=== PATIENT | female | born 1940 | race Caucasian/White ===

== ENCOUNTER 2018-05-11 13:09 | Outpatient (REF) | payer MEDICARE, SELFPAY ==
[2018-05-11 18:45] LABS: HCT 28.4 % (36.0-46.0); HGB 8.6 g/dL (12.0-15.5); Mean Corp. HGB Concentration 30.3 g/dL (32.0-36.0); Mean Corpuscular Hemoglobin 32.3 pg (27.0-33.0); Mean Corpuscular Volume 106.8 fL (80-95); Mean Platelet Volume 10.6 fL (8.0-11.0); Platelet Count 184 x1000/uL (130-400); RBC 2.66 m/cumm (4.00-5.20); RBC Distribution Width 14.8 % (11.7-14.6); White Blood Cell Count 7.77 k/cumm (4.4-10.8)
[2018-05-11 18:48] LABS: Anion Gap 9.3 mmol/L (3-11); CO2 27.7 mmol/L (21.0-32.0); CREATININE 2.27 mg/dL (0.55-1.02); Calcium 8.7 mg/dL (8.5-10.1); Chloride 102 mmol/L (98-107); Estimated GFR 20.82 (mL/min/1.73m2); Glucose 116 mg/dL (70-100); Potassium 4.4 mmol/L (3.5-5.1); Sodium 139 mmol/L (136-145)
[2018-05-11 19:33] LABS: BUN 101 mg/dL (7-18)
[2018-05-11 19:35] LABS: Hemoglobin A1C 5.3 % (4.5-6.2)
== END 2018-05-11 13:29 ==
LOC: NCHCN 13:09
PROVIDERS: PCP Family Medicine; Visit Provider Family Medicine
DX: N18.4 Chronic kidney disease, stage 4 (severe) (principal); I10 Essential (primary) hypertension; R53.83 Other fatigue; R73.01 Impaired fasting glucose
CPT/HCPCS: 80048; 85027; 83036; 84443

== ENCOUNTER 2018-05-28 15:50 | Emergency (ER) | payer MEDICARE, MEDICAID, SELFPAY ==
[2018-05-28] VITALS (27 sets, daily range): BP systolic 101–131; BP diastolic 36–82; PULSE 69–89; RESP 2–25; TEMP 36.5–37; O2SAT 89–100
--- NOTE | 2018-05-28 16:52 | DI.RAD_ITS ---
SYMPTOM/DIAGNOSIS: COUGH, CONGESTION, SOB, WT GAIN, NAUSEA AP AND LATERAL CHEST: There is some increased interstitial markings in the lungs. No localized infiltrate is seen. The heart is top limits of normal in size. Pacing wires in place in the right atrium and right ventricle. SUMMARY: The possibility of mild congestive failure is raised. If clinically appropriate a follow up PA and lateral chest could be obtained.
--- NOTE | 2018-05-28 17:00 | ED.GENADUL_ITS ---
Discharge Plan Disposition Patient Disposition: AGAINST MEDICAL ADVICE Discharge Details Chief Complaint: GenMedical Clinical Impression: CHF (congestive heart failure), Pneumonia, Elevated INR Primary Care Provider: Lyric Jackson ED Provider: De Gil Home Meds and New Rx's Prescriptions: New doxycycline hyclate 100 mg capsule 100 mg PO Q12H 10 Days Qty: 20 RF: 0 Continued furosemide 40 MG tablet 40 mg PO BID RF: 0 acetaminophen [Tylenol] 325 MG tablet 650 mg PO TID RF: 0 sertraline 100 MG tablet 100 mg PO DAILY RF: 0 melatonin 3 MG tablet 3 mg PO HS RF: 0 amlodipine 5 MG tablet 5 mg PO DAILY RF: 0 calcium carbonate-vitamin D3 1 EACH tablet 1 tab PO BID RF: 0 coenzyme Q10 [Co Q-10] 50 MG capsule 50 mg PO DAILY RF: 0 simvastatin 20 MG tablet 20 mg PO DAILY RF: 0 ferrous sulfate 325 MG tablet 325 mg PO BID RF: 0 valsartan [Diovan] 320 MG tablet 320 mg PO DAILY RF: 0 zafirlukast 20 MG tablet 20 mg PO BID RF: 0 nitroglycerin [Nitrostat] 0.4 MG tablet, sublingual 0.4 mg Sublingual PRN PRNRF: 0 omeprazole 20 MG capsule,delayed release(DR/EC) 20 mg PO BID RF: 0 albuterol sulfate [ProAir HFA] 8.5 GM HFA aerosol inhaler 2 puff Inhalation BID RF: 0 loratadine 10 MG tablet 10 mg PO DAILY RF: 0 rizatriptan 5 MG tablet 5 mg PO PRN PRNRF: 0 metoprolol tartrate 25 MG tablet 25 mg PO BID RF: 0 Symbicort 10.2 GM HFA aerosol inhaler 3 puff Inhalation BID RF: 0 glucosam-chond kr-xxieji-de ac 1 EACH capsule 2 ea PO DAILY RF: 0 Vitamins B Complex 1 EACH tablet 1 ea PO DAILY RF: 0 No Action warfarin [Coumadin] 5 MG tablet 2.5 - 5 mg PO DAILY RF: 0 Discharge Instructions Instructions: Heart Failure (ED), Against Medical Advice (ED), Pneumonia (ED) Additional Instructions: You have been started on a antibiotic for your suspected pneumonia. It was also found that your Coumadin level was very high. Please hold your Coumadin for the next 2 days. Recheck an INR on Wednesday. If between 2 and 3 restart Coumadin at normal dose range is Please follow-up with your primary care doctor tomorrow morning Referrals: Lyric Jackson MD [Primary Care Provider] - 05/29/18 8:00 am Discharge Data Discharge Date/Time-TO BE ENTERED AT DEPARTURE: 05/28/18 20:14 Discharge Physician: De Gil Medical Decision Making Patient is a 78-year-old female arriving with the above chief complaint. EKG shows continual V paced rhythm with a rate of 75 bpm. Chest x-ray concerning for slight fluid overload possible underlying pneumonia. No focal consolidation noted. Labs concerning for slightly elevated BNP and elevated white blood cell count of 15,000. Noted left shift. Blood cultures x2 sent along with lactate. Ceftriaxone 1 g IV ordered Patient requesting discharge home despite questionable pneumonia along with CHF exacerbation. My recommendations were for hospitalization. She understands the risks associated with discharge home and has signed AMA paperwork. Plan is to start her on doxycycline 100 mg twice daily times 10 days. She has local PCP in the area along with pulmonology. Recommended that she follow-up with both tomorrow morning. Strict return precautions provided. HPI General Date/Time Provider Initiated Documentation: 05/28/18 16:13 . HPI Narrative: Patient is a 78-year-old female resenting with a chief complaint of shortness of breath, productive cough, weakness, nausea over the last week. She denies any chest pain hemoptysis or fevers. She does report a significant weight gain over this time. She was recently seen by her PCP a week ago and had her Lasix 80 reduced from 80 mg twice daily to 80 mg in a.m. and 40 mg in p.m. She did have blood work drawn this morning and was seen by her PCP. Related Data Home Medications Medication Instructions Recorded Confirmed Symbicort 3 puff INHALATION BID 09/11/14 05/28/18 Vitamins B Complex 1 ea PO DAILY 09/11/14 05/28/18 acetaminophen [Tylenol] 650 mg PO TID 09/11/14 05/28/18 albuterol sulfate [ProAir HFA] 2 puff INHALATION BID 09/11/14 05/28/18 amlodipine 5 mg PO DAILY 09/11/14 05/28/18 calcium carbonate-vitamin D3 1 tab PO BID 09/11/14 05/28/18 coenzyme Q10 [Co Q-10] 50 mg PO DAILY 09/11/14 05/28/18 ferrous sulfate 325 mg PO BID 09/11/14 05/28/18 furosemide 40 mg PO BID 09/11/14 05/28/18 glucosam-chond kw-avbgkb-le ac 2 ea PO DAILY 09/11/14 05/28/18 loratadine 10 mg PO DAILY 09/11/14 05/28/18 melatonin 3 mg PO HS 09/11/14 05/28/18 metoprolol tartrate 25 mg PO BID 09/11/14 05/28/18 nitroglycerin [Nitrostat] 0.4 mg SUBLINGUAL PRN PRN 09/11/14 05/28/18 omeprazole 20 mg PO BID 09/11/14 05/28/18 rizatriptan 5 mg PO PRN PRN 09/11/14 05/28/18 sertraline 100 mg PO DAILY 09/11/14 05/28/18 simvastatin 20 mg PO DAILY 09/11/14 05/28/18 valsartan [Diovan] 320 mg PO DAILY 09/11/14 05/28/18 warfarin [Coumadin] 2.5 - 5 mg PO DAILY 09/11/14 05/28/18 zafirlukast 20 mg PO BID 09/11/14 05/28/18 doxycycline hyclate 100 mg PO Q12H 10 Days #20 cap 05/28/18 Previous Rx's Medication Instructions Recorded doxycycline hyclate 100 mg PO Q12H 10 Days #20 cap 05/28/18 Allergies Allergy/AdvReac Type Severity Reaction Status Date / Time oxycodone AdvReac Intermediate Nausea Unverified 05/28/18 17:26 oxycodone HCl [From Percocet] AdvReac Intermediate Nausea Unverified 05/28/18 17:26 General Stated Complaint: GenMedical YOAN: 2 PFSH Social History Smoking/Tobacco Use Status: Former Tobacco Use Alcohol Intake: never Drug use: Never Substance use type: does not use Do you feel safe at home: Yes Do you feel safe in your relationship?: Yes Exam Const General: cooperative, comfortable and no acute distress Nutritional Appearance: well nourished Orientation: alert, awake and oriented x3 HENMT Head: normal to inspection Ears: external ears normal and TM's normal bilaterally General nose exam: external nose normal Face and sinus: normal facial exam Mouth: oral mucosae normal Throat: posterior oropharynx normal Eyes General: appearance normal, both eyes and all related structures Sclera: sclerae normal Cornea: corneas normal Neck Neck: normal visual inspection Carotids: normal carotid upstroke Chest Chest: normal inspection of the chest Resp Effort & Inspection: normal respiratory effort Auscultation: bronchial breath sounds and wheezes expiratory wheezes and right upper Cardio Jugular venous pressure: no JVD Palpation: normal PMI Rate: regular rate Rhythm: regular rhythm Pulses: normal peripheral pulses GI Palpation: soft, no hepatosplenomegaly, not firm and no guarding Back/Spine/Pelvis Back: no CVA tenderness Skin General skin exam: no rashes or lesions noted Lesions: no lesions Rashes: no rashes Neuro General: alert, awake and oriented x3 Course Vital Signs Temperature 36.5 C 05/28/18 16:05 Pulse 75 05/28/18 16:05 Respiratory Rate 20 05/28/18 16:05 Blood Pressure 126/82 05/28/18 16:05 Pulse Oximetry 93 L 05/28/18 16:05 Temperature 37 C 05/28/18 16:46 Temperature Source Oral 05/28/18 16:46 Pulse 75 05/28/18 16:05 Respiratory Rate 20 05/28/18 16:05 Blood Pressure 126/82 05/28/18 16:05 Blood Pressure Position Sitting 05/28/18 16:05 Pulse Oximetry 93 L 05/28/18 16:05 Oxygen Delivery Method Room Air 05/28/18 16:05 Oxygen Flow Rate 0 05/28/18 16:05 Pain Level 0 05/28/18 16:05 Lab/Test Results Lab/Test Results: 05/28/18 18:55 Blood Blood Culture - Pending 05/28/18 19:07 Blood Blood Culture - Pending Laboratory Tests Range/Units 05/28/18 05/28/18 05/28/18 17:08 17:08 17:08 WBC (4.4-10.8) k/cumm RBC (4.00-5.20) m/cumm Hgb (12.0-15.5) g/dL Hct (36.0-46.0) % MCV (80-95) fL MCH (27.0-33.0) pg MCHC (32.0-36.0) g/dL RDW (11.7-14.6) % Plt Count (130-400) x1000/uL MPV (8.0-11.0) fL Immature Gran % Neutrophils % Lymphocytes % Monocytes % Eosinophils % Basophils % Absolute Neutrophils (1.2-6.7) k/cumm Absolute Lymphocytes (1.2-3.4) k/cumm Absolute Monocytes (0.11-0.7) k/cumm Absolute Eosinophils (0.0-0.7) k/cumm Absolute Basophils (0.0-0.2) k/cumm RBC Morphology Polychromasia Macrocytosis PT Cancelled INR Cancelled APTT Cancelled Sodium (136-145) mmol/L 140 Potassium (3.5-5.1) mmol/L 4.3 Chloride (98-107) mmol/L 102 Carbon Dioxide (21.0-32.0) mmol/L 29.3 Anion Gap (3-11) mmol/L 8.7 BUN (7-18) mg/dL 76 H Creatinine (0.55-1.02) mg/dL 2.52 H Estimated GFR/1.73 m2 (mL/min/1.73m2) 18.46 Glucose (70-100) mg/dL 114 H Lactate (0.6-1.4) mmol/l Calcium (8.5-10.1) mg/dL 8.9 Magnesium (1.8-2.4) mg/dL 2.0 Total Bilirubin (0.2-1.0) mg/dL 0.5 AST (15-37) U/L 27 ALT (12-78) U/L 24 Alkaline Phosphatase (46-116) U/L 87 Troponin I (0.00-0.06) ng/mL < 0.02 NT-Pro-B Natriuret Pep ( - 299) pg/mL 5468 H Total Protein (6.4-8.2) g/dL 6.8 Albumin (3.4-5.0) g/dL 2.9 L Range/Units 05/28/18 05/28/18 05/28/18 17:25 18:33 19:07 WBC (4.4-10.8) k/cumm 15.71 H RBC (4.00-5.20) m/cumm 2.22 L Hgb (12.0-15.5) g/dL 7.2 L Hct (36.0-46.0) % 24.0 L MCV (80-95) fL 108.1 H MCH (27.0-33.0) pg 32.4 MCHC (32.0-36.0) g/dL 30.0 L RDW (11.7-14.6) % 15.3 H Plt Count (130-400) x1000/uL 168 MPV (8.0-11.0) fL 9.7 Immature Gran % 0.1 Neutrophils % 87.7 Lymphocytes % 5.9 Monocytes % 5.2 Eosinophils % 1.1 Basophils % 0.0 Absolute Neutrophils (1.2-6.7) k/cumm 13.78 H Absolute Lymphocytes (1.2-3.4) k/cumm 0.93 L Absolute Monocytes (0.11-0.7) k/cumm 0.82 H Absolute Eosinophils (0.0-0.7) k/cumm 0.17 Absolute Basophils (0.0-0.2) k/cumm 0.00 RBC Morphology See below Polychromasia Present Macrocytosis 1+ PT 56.1 H INR 5.5 H* APTT 68.8 H Sodium (136-145) mmol/L Potassium (3.5-5.1) mmol/L Chloride (98-107) mmol/L Carbon Dioxide (21.0-32.0) mmol/L Anion Gap (3-11) mmol/L BUN (7-18) mg/dL Creatinine (0.55-1.02) mg/dL Estimated GFR/1.73 m2 (mL/min/1.73m2) Glucose (70-100) mg/dL Lactate (0.6-1.4) mmol/l 0.8 Calcium (8.5-10.1) mg/dL Magnesium (1.8-2.4) mg/dL Total Bilirubin (0.2-1.0) mg/dL AST (15-37) U/L ALT (12-78) U/L Alkaline Phosphatase (46-116) U/L Troponin I (0.00-0.06) ng/mL NT-Pro-B Natriuret Pep ( - 299) pg/mL Total Protein (6.4-8.2) g/dL Albumin (3.4-5.0) g/dL
[2018-05-28] MEDS: Albuterol/Ipratropium 3 ML UPD VIAL UPD (17:14)
[2018-05-28 17:48] LABS: Abs Immature Grans 0.02 k/cumm (0.0-0.09); Absolute Eosinophil Count 0.17 k/cumm (0.0-0.7); Absolute Lymphocyte Count 0.93 k/cumm (1.2-3.4); Absolute Monocyte Count 0.82 k/cumm (0.11-0.7); Eosinophils % 1.1; HGB 7.2 g/dL (12.0-15.5); Immature Grans % 0.1; Lymphocytes % 5.9; Mean Corpuscular Hemoglobin 32.4 pg (27.0-33.0); Mean Corpuscular Volume 108.1 fL (80-95); Mean Platelet Volume 9.7 fL (8.0-11.0); Monocytes % 5.2; Neutrophils % 87.7; Platelet Count 168 x1000/uL (130-400); RBC 2.22 m/cumm (4.00-5.20); RBC Distribution Width 15.3 % (11.7-14.6); White Blood Cell Count 15.71 k/cumm (4.4-10.8)
[2018-05-28 17:54] LABS: ALT 24 U/L (12-78); AST 27 U/L (15-37); Albumin 2.9 g/dL (3.4-5.0); Alkaline Phosphatase 87 U/L (46-116); Anion Gap 8.7 mmol/L (3-11); BUN 76 mg/dL (7-18); Bilirubin, Total 0.5 mg/dL (0.2-1.0); CO2 29.3 mmol/L (21.0-32.0); CREATININE 2.52 mg/dL (0.55-1.02); Calcium 8.9 mg/dL (8.5-10.1); Chloride 102 mmol/L (98-107); Estimated GFR 18.46 (mL/min/1.73m2); Glucose 114 mg/dL (70-100); Potassium 4.3 mmol/L (3.5-5.1); Sodium 140 mmol/L (136-145); Total Protein 6.8 g/dL (6.4-8.2)
--- NOTE | 2018-05-28 17:55 | DI.VRAD_ITS ---
EXAM: XR Chest, 2 Views EXAM DATE/TIME: 05/28/2018 4:56 PM CLINICAL HISTORY: 78 years old, female; Signs and symptoms; Cough TECHNIQUE: Imaging protocol: XR of the chest, 2 views. COMPARISON: CR CHEST 2 VIEWS PA,LAT 06/13/2014 4:04 PM FINDINGS: Tubes, catheters and devices: Stable placement of the dual chamber cardiac conduction device with lead tips in the right atrium and right ventricle. Lungs: Diffuse prominence to interstitial markings with associated bilateral segmental bronchial wall thickening. No large airspace consolidations are grossly noted. Pleural space: Mild thickening to the right minor fissure. Costophrenic angles appear grossly clear. Heart/Mediastinum: Stable cardiomegaly. Vasculature: Stable calcified aortic knob. Bones/joints: There has been interval right shoulder hemiarthroplasty. No acute skeletal abnormalities are otherwise noted. IMPRESSION: Main diagnostic consideration would be that of early diffuse interstitial pulmonary edema, most likely cardiogenic in etiology. Differential would include an atypical infectious pneumonic process in the appropriate clinical setting. Dictated and Authenticated by: Garfield Melendez MD. Ordering:SHANKAR Kc MD
[2018-05-28 17:59] LABS: Troponin I < 0.02 ng/mL (0.00-0.06)
[2018-05-28 18:05] LABS: NT-proBNP 5468 pg/mL
[2018-05-28 18:24] LABS: Absolute Neutrophil Count 13.78 k/cumm (1.2-6.7)
[2018-05-28 18:26] LABS: Macrocytosis 1+; Polychromasia Present
[2018-05-28 18:54] LABS: PTT Activated 68.8 sec (21.0-31.4); Prothrombin Time 56.1 sec (9.3-11.0)
[2018-05-28 19:22] LABS: INR 5.5 (0.9-1.1)
[2018-05-28] MEDS: cefTRIAXone 1 GM/50 ML BAG IVPB (19:25)
[2018-05-28 19:27] LABS: Lactate-non-spesis 0.8 mmol/l (0.6-1.4)
== END 2018-05-28 20:14 | disposition left against medical advice (07) ==
PROVIDERS: Emergency Provider Physician Assistant; PCP Family Medicine
DX: I50.9 Heart failure, unspecified (principal); I13.0 Hypertensive heart and chronic kidney disease with heart failure and stage 1 through stage 4 chronic kidney disease, or unspecified chronic kidney disease; N18.9 Chronic kidney disease, unspecified; J18.9 Pneumonia, unspecified organism; R79.1 Abnormal coagulation profile; T45.515A Adverse effect of anticoagulants, initial encounter; Z79.01 Long term (current) use of anticoagulants; R63.5 Abnormal weight gain
CPT/HCPCS: 36415; 80053; 87040; 93005; 94640; 96365; 99285; 71046; 83605; 83735; 83880; 84484; 85025; 85610; 85730; 93010; J0696; J7620

== ENCOUNTER 2018-05-31 09:16 | Outpatient (RCR) | payer MEDICARE, MEDICAID, SELFPAY ==
[2018-05-31] MEDS: Darbepoetin 40 MCG SYR SC (11:19)
== END 2018-06-12 23:59 | disposition home or self-care (01) ==
LOC: INF 09:16
PROVIDERS: PCP Family Medicine; Visit Provider Internal Medicine
DX: N18.4 Chronic kidney disease, stage 4 (severe) (principal); D63.1 Anemia in chronic kidney disease
CPT/HCPCS: 96372; J0881

== ENCOUNTER 2018-06-06 14:43 | Outpatient (REF) | payer MEDICARE, MEDICAID, SELFPAY ==
[2018-06-07 08:18] LABS: HCT 25.1 % (36.0-46.0); HGB 7.3 g/dL (12.0-15.5); Mean Corp. HGB Concentration 29.1 g/dL (32.0-36.0); Mean Corpuscular Hemoglobin 31.5 pg (27.0-33.0); Mean Platelet Volume 10.6 fL (8.0-11.0); Platelet Count 279 x1000/uL (130-400); RBC 2.32 m/cumm (4.00-5.20); RBC Distribution Width 15.1 % (11.7-14.6); White Blood Cell Count 8.74 k/cumm (4.4-10.8)
[2018-06-07 08:44] LABS: Mean Corpuscular Volume 108.2 fL (80-95)
[2018-06-07 10:20] LABS: Anion Gap 8.1 mmol/L (3-11); BUN 70 mg/dL (7-18); CO2 27.9 mmol/L (21.0-32.0); Calcium 8.8 mg/dL (8.5-10.1); Chloride 101 mmol/L (98-107); Estimated GFR 22.78 (mL/min/1.73m2); Glucose 88 mg/dL (70-100); NT-proBNP 6573 pg/mL; Potassium 5.2 mmol/L (3.5-5.1); Sodium 137 mmol/L (136-145)
== END 2018-06-06 15:03 ==
LOC: NCHCN 14:43
PROVIDERS: PCP Family Medicine; Visit Provider Family Medicine
DX: N18.4 Chronic kidney disease, stage 4 (severe) (principal); D63.1 Anemia in chronic kidney disease; I13.0 Hypertensive heart and chronic kidney disease with heart failure and stage 1 through stage 4 chronic kidney disease, or unspecified chronic kidney disease
CPT/HCPCS: 80048; 85027; 83880

== ENCOUNTER 2018-07-06 00:55 | Outpatient (RCR) | payer MEDICARE, MEDICAID, SELFPAY ==
[2018-07-06] MEDS: Darbepoetin 40 MCG SYR SC (09:26)
== END 2018-07-13 23:59 | disposition home or self-care (01) ==
LOC: INF 00:55
PROVIDERS: PCP Family Medicine; Visit Provider Family Medicine
DX: N18.4 Chronic kidney disease, stage 4 (severe) (principal); D63.1 Anemia in chronic kidney disease
CPT/HCPCS: 96372; J0881

== ENCOUNTER 2018-08-09 08:35 | Outpatient (RCR) | payer MEDICARE, MEDICAID, SELFPAY | END 2018-08-12 23:59 | disposition home or self-care (01) | LOC: INF 08:35 | PROVIDERS: PCP Family Medicine; Visit Provider Internal Medicine | DX: N18.4 Chronic kidney disease, stage 4 (severe) (principal); D63.1 Anemia in chronic kidney disease | CPT/HCPCS: 96372; J0881 ==

== ENCOUNTER 2018-09-11 01:17 | Outpatient (RCR) | payer MEDICARE, MEDICAID, SELFPAY ==
[2018-09-11 12:41] LABS: HCT 26.4 % (36.0-46.0); HGB 7.7 g/dL (12.0-15.5)
== END 2018-09-12 23:59 | disposition home or self-care (01) ==
LOC: INF 01:17
PROVIDERS: PCP Family Medicine; Visit Provider Internal Medicine
DX: N18.4 Chronic kidney disease, stage 4 (severe) (principal); D63.1 Anemia in chronic kidney disease
CPT/HCPCS: 36415; 96372; 85014; 85018; J0881

== ENCOUNTER 2018-10-09 01:15 | Outpatient (RCR) | payer MEDICARE, MEDICAID, SELFPAY ==
[2018-09-25 11:36] LABS: HCT 25.8 % (36.0-46.0); HGB 7.7 g/dL (12.0-15.5)
[2018-10-09 10:17] LABS: HCT 25.5 % (36.0-46.0); HGB 7.3 g/dL (12.0-15.5)
== END 2018-10-13 23:59 | disposition home or self-care (01) ==
LOC: INF 01:15
PROVIDERS: PCP Family Medicine; Visit Provider Internal Medicine
DX: N18.4 Chronic kidney disease, stage 4 (severe) (principal); D63.1 Anemia in chronic kidney disease
CPT/HCPCS: 36415; 96372; 85014; 85018; J0881

== ENCOUNTER 2018-11-06 01:47 | Outpatient (RCR) | payer MEDICARE, MEDICAID, SELFPAY ==
[2018-10-23 09:50] LABS: HCT 28.3 % (36.0-46.0); HGB 8.2 g/dL (12.0-15.5)
[2018-11-06 09:59] LABS: HCT 26.1 % (36.0-46.0); HGB 7.6 g/dL (12.0-15.5)
== END 2018-11-12 23:59 | disposition home or self-care (01) ==
LOC: INF 01:47
PROVIDERS: PCP Family Medicine; Visit Provider Internal Medicine
DX: N18.4 Chronic kidney disease, stage 4 (severe) (principal); D63.1 Anemia in chronic kidney disease
CPT/HCPCS: 36415; 96372; 85014; 85018; J0881

== ENCOUNTER 2018-12-06 01:22 | Outpatient (RCR) | payer MEDICARE, MEDICAID, SELFPAY ==
[2018-11-22 10:38] LABS: Iron 47 ug/dL (50-175); Total Iron Binding Capacity 272 ug/dL (250-450); Transferrin Sat 17 % (15-50)
[2018-11-22 10:39] LABS: HCT 28.7 % (36.0-46.0); HGB 8.2 g/dL (12.0-15.5)
[2018-11-22 10:51] LABS: Ferritin 79 ng/mL (8-388)
[2018-12-06 09:49] LABS: HCT 30.4 % (36.0-46.0); HGB 8.9 g/dL (12.0-15.5)
== END 2018-12-13 23:59 | disposition home or self-care (01) ==
LOC: INF 01:22
PROVIDERS: Internal Medicine Nephrology; PCP Family Medicine; Visit Provider Internal Medicine
DX: N18.4 Chronic kidney disease, stage 4 (severe) (principal); D63.1 Anemia in chronic kidney disease
CPT/HCPCS: 36415; 96372; 82728; 83540; 83550; 85014; 85018; J0881

== ENCOUNTER 2019-01-11 02:01 | Outpatient (RCR) | payer MEDICARE, MEDICAID, SELFPAY ==
[2018-12-20 09:45] LABS: HCT 32.8 % (36.0-46.0); HGB 9.6 g/dL (12.0-15.5)
[2019-01-11 13:20] LABS: HCT 33.1 % (36.0-46.0); HGB 9.9 g/dL (12.0-15.5)
== END 2019-01-12 23:59 | disposition home or self-care (01) ==
LOC: INF 02:01
PROVIDERS: Internal Medicine Nephrology; PCP Family Medicine; Visit Provider Internal Medicine
DX: N18.4 Chronic kidney disease, stage 4 (severe) (principal); D63.1 Anemia in chronic kidney disease
CPT/HCPCS: 36415; 96372; 85014; 85018; J0881

== ENCOUNTER 2019-02-08 04:51 | Outpatient (RCR) | payer MEDICARE, MEDICAID, SELFPAY ==
[2019-01-25 10:33] LABS: HCT 32.8 % (36.0-46.0); HGB 9.8 g/dL (12.0-15.5)
[2019-02-08 10:02] LABS: HCT 32.6 % (36.0-46.0); HGB 9.5 g/dL (12.0-15.5)
== END 2019-02-12 23:59 | disposition home or self-care (01) ==
LOC: INF 04:51
PROVIDERS: Internal Medicine Nephrology; PCP Family Medicine; Visit Provider Internal Medicine
DX: N18.4 Chronic kidney disease, stage 4 (severe) (principal); D63.1 Anemia in chronic kidney disease; Z45.2 Encounter for adjustment and management of vascular access device
CPT/HCPCS: 36415; 96372; 85014; 85018; J0881

== ENCOUNTER 2019-03-04 01:03 | Outpatient (RCR) | payer MEDICARE, MEDICAID, SELFPAY ==
[2019-03-04 14:08] LABS: HCT 27.6 % (36.0-46.0); HGB 8.1 g/dL (12.0-15.5)
[2019-03-04] MEDS: Darbepoetin 200 MCG SYR SC (14:27)
== END 2019-03-15 23:59 | disposition home or self-care (01) ==
LOC: INF 01:03
PROVIDERS: PCP Family Medicine; Visit Provider Internal Medicine
DX: N18.4 Chronic kidney disease, stage 4 (severe) (principal); D63.1 Anemia in chronic kidney disease
CPT/HCPCS: 36415; 96372; 85014; 85018; J0881

== ENCOUNTER 2019-04-09 02:13 | Outpatient (RCR) | payer MEDICARE, MEDICAID, SELFPAY ==
[2019-03-18 10:10] LABS: HCT 25.8 % (36.0-46.0); HGB 7.4 g/dL (12.0-15.5)
[2019-03-18] MEDS: Darbepoetin 200 MCG SYR SC (11:07)
[2019-03-18 11:52] LABS: Ferritin 83 ng/mL (8-252)
[2019-03-18 12:49] LABS: Iron 39 ug/dL (50-170); Total Iron Binding Capacity 282 ug/dL (250-450); Transferrin Sat 14 % (15-50)
[2019-03-26] MEDS: IRON SUCROSE COMPLEX 300 MG in Normal Saline 250 ML 176.667 MG IVPB (09:14)
[2019-03-26] MEDS: Normal Saline Flush 10 ML SYR IVP (09:19)
[2019-04-01 10:00] LABS: HCT 29.9 % (36.0-46.0); HGB 8.6 g/dL (12.0-15.5)
[2019-04-01] MEDS: IRON SUCROSE COMPLEX 300 MG in Normal Saline 250 ML 176.667 MG IVPB (10:14)
[2019-04-01] MEDS: Normal Saline Flush 10 ML SYR IVP (10:14)
[2019-04-09] MEDS: Normal Saline Flush 10 ML SYR IVP (09:12)
[2019-04-09] MEDS: IRON SUCROSE COMPLEX 300 MG in Normal Saline 250 ML 176.667 MG IVPB (09:12)
== END 2019-04-13 23:59 | disposition home or self-care (01) ==
LOC: INF 02:13
PROVIDERS: Internal Medicine Nephrology; PCP Family Medicine; Visit Provider Internal Medicine
DX: N18.4 Chronic kidney disease, stage 4 (severe) (principal); D63.1 Anemia in chronic kidney disease; D50.9 Iron deficiency anemia, unspecified
CPT/HCPCS: 36415; 96365; 96366; 96372; 82728; 83540; 83550; 85014; 85018; J0881; J1756

== ENCOUNTER 2019-05-01 02:33 | Outpatient (RCR) | payer MEDICARE, MEDICAID, SELFPAY ==
[2019-04-16 08:54] LABS: HCT 32.7 % (36.0-46.0); HGB 9.6 g/dL (12.0-15.5)
[2019-05-01 13:10] LABS: HCT 33.3 % (36.0-46.0); HGB 9.8 g/dL (12.0-15.5)
== END 2019-05-14 23:59 | disposition home or self-care (01) ==
LOC: INF 02:33
PROVIDERS: PCP Family Medicine; Visit Provider Internal Medicine
DX: N18.4 Chronic kidney disease, stage 4 (severe) (principal); D63.1 Anemia in chronic kidney disease
CPT/HCPCS: 36415; 96372; 85014; 85018; J0881

== ENCOUNTER 2019-06-13 12:00 | Outpatient (RCR) | payer MEDICARE, MEDICAID, SELFPAY ==
[2019-05-15 13:28] LABS: HCT 28.4 % (36.0-46.0); HGB 8.6 g/dL (12.0-15.5)
[2019-05-15] MEDS: Darbepoetin 200 MCG SYR SC (13:45)
[2019-05-15 13:58] LABS: Iron 44 ug/dL (50-170); Total Iron Binding Capacity 244 ug/dL (250-450); Transferrin Sat 18 % (15-50)
[2019-05-15 14:02] LABS: Ferritin 122 ng/mL (8-252)
[2019-05-29 13:24] LABS: HCT 28.1 % (36.0-46.0); HGB 8.5 g/dL (12.0-15.5)
[2019-05-29] MEDS: Darbepoetin 200 MCG SYR (13:45)
[2019-06-13 10:40] LABS: HCT 22.4 % (36.0-46.0)
[2019-06-13 10:50] LABS: HGB 6.5 g/dL (12.0-15.5)
[2019-06-13] MEDS: Darbepoetin 300 MCG SYR SC (11:09)
[2019-06-13] MEDS: IRON SUCROSE COMPLEX 300 MG in Normal Saline 250 ML 176.667 MG IVPB (11:52)
[2019-06-13] MEDS: Normal Saline Flush 10 ML SYR IVP (11:52)
== END 2019-06-13 23:59 | disposition home or self-care (01) ==
LOC: INF 12:00
PROVIDERS: Internal Medicine Nephrology; PCP Family Medicine; Visit Provider Internal Medicine
DX: N18.4 Chronic kidney disease, stage 4 (severe) (principal); D63.1 Anemia in chronic kidney disease
CPT/HCPCS: 36415; 96365; 96372; 82728; 83540; 83550; 85014; 85018; J0881; J1756

== ENCOUNTER 2019-06-21 11:26 | Outpatient (REF) | payer MEDICARE, MEDICAID, SELFPAY | END 2019-06-21 11:46 | LOC: NCHCN 11:26 | PROVIDERS: PCP Family Medicine; Visit Provider Family Medicine | DX: N18.4 Chronic kidney disease, stage 4 (severe) (principal); D63.1 Anemia in chronic kidney disease; C18.9 Malignant neoplasm of colon, unspecified | CPT/HCPCS: 82272 ==

== ENCOUNTER 2019-06-27 11:03 | Inpatient (IN) | payer MEDICARE, MEDICAID, SELFPAY ==
[2019-06-27] VITALS (89 sets, daily range): BP systolic 86–130; BP diastolic 33–97; PULSE 68–121; RESP 13–29; TEMP 35.5–36.4; O2SAT 92–99
--- NOTE | 2019-06-27 11:30 | DI.RAD_ITS ---
EXAM: XR PORTABLE CHEST AP CLINICAL HISTORY: cough, sob, r/o acute disease TECHNIQUE: COMPARISON: No exams were available for comparison FINDINGS: Portable AP chest at 1200 hours. Heart is at the upper limits of normal in size. There is a transve nous cardiac pacemaker position. Slight prominence of pulmonary interstitial markings noted in a dif fuse pattern, question mild CHF. IMPRESSION: Appearance of the chest may represent mild CHF. Infectious process not excluded on the basis of this examination..
--- NOTE | 2019-06-27 11:32 | ED.GENADUL_ITS ---
Discharge Plan Disposition Patient Disposition: [facility] Condition: Stable Discharge Details Chief Complaint: SOB Clinical Impression: Symptomatic anemia, Supratherapeutic INR, GI bleed Admit Date/Time: 06/27/19 12:32 Admit Provider: Kalyn Daley Attending Provider: Kalyn Daley Primary Care Provider: Lyric Jackson ED Provider: Ebony Cleary Discharge Data Discharge Date/Time-TO BE ENTERED AT DEPARTURE: 06/27/19 13:16 Medical Decision Making 79yo F w/ a h/o afib on coumadin, copd, morbid obesity, chronic anemia receiving aranesp injections twice monthly presents for generalized weakness, dyspnea on exertion and intermittent black stools over the past 1-2 weeks. Sent from infusion center for symptomatic anemia with hgb 6.3 today. It was 6.5 two weeks ago. Her INR is 3.2 today and it was 5.5 one month ago. Blood pressure 94/77. Remainder vitals within normal limits. She appears nontoxic. Abdomen nontender. She appears generally weak but no focal deficits. Maroon colored stool, guaiac positive. Suspect symptoms likely related to anemia. Will also obtain urinalysis and chest x-ray. History and presentation not consistent with ACS, PE, CVA. 1 unit pRBC and vit K PO 2.5mg x 1 ordered. Additional screening labs obtained and note a negative troponin. EKG notes paced rhythm but unchanged from previous EKG. Lactate 0.9. Chest x-ray negative. Case discussed with patient's surgeon Dr. Lucas at 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 EGD was unremarkable at that time. Plan was for repeat colonoscopy which is in 2 weeks. As colonoscopy cannot be performed at this time due to supratherapeutic INR, plan is for admission for continued monitoring and to move up colonoscopy to next week. An appointment was made for [place]/EGD 07/03/[address] Lucas at [facility]. Case discussed with Dr. Delarosa here who will continue to follow patient. Pt's daughter Sumi and Dr. Delarosa informed of scheduled appointment for [place]/EGD next week. Discussed with hospitalist who accepts patient for admission. Medical Records Medical records reviewed: Yes I reviewed the patient's medical records. Imaging Data Radiologic Study: Radiologist's impression: XR PORTABLE CHEST AP CLINICAL HISTORY: cough, sob, r/o acute disease TECHNIQUE: COMPARISON: No exams were available for comparison FINDINGS: Portable AP chest at 1200 hours. Heart is at the upper limits of normal in size. There is a transvenous cardiac pacemaker position. Slight prominence of pulmonary interstitial markings noted in a diffuse pattern, question mild CHF. IMPRESSION: Appearance of the chest may represent mild CHF. Infectious process not excluded on the basis of this examination.. Lab Data Lab results reviewed: Yes I reviewed the patient's lab results. Labs: Laboratory Tests Range/Units 06/27/19 06/27/19 06/27/19 11:25 11:25 11:25 Hgb (12.0-15.5) g/dL 6.6 L* Hct (36.0-46.0) % 23.5 L Lactate (0.6-1.4) mmol/L 0.9 Magnesium (1.8-2.4) mg/dL 2.4 Troponin I (<0.06) ng/Ml < 0.05 Procalcitonin ng/mL 0.1 Patient ABO/Rh Antibody Screen Crossmatch Range/Units 06/27/19 11:50 Hgb (12.0-15.5) g/dL Hct (36.0-46.0) % Lactate (0.6-1.4) mmol/L Magnesium (1.8-2.4) mg/dL Troponin I (<0.06) ng/Ml Procalcitonin ng/mL Patient ABO/Rh O Positive Antibody Screen Negative Crossmatch See Detail ECG Data Attestation: I personally reviewed and interpreted this ECG (s) as follows: Interpretation: Rate of 73, paced. QRS 188. No acute ST ischemic changes. No change from EKG 05/2018. HPI General Mode of arrival: ambulatory . Date/Time Provider Initiated Documentation: 06/27/19 11:04 . Limitations to Documentation: no limitations . Information obtained by: patient . HPI Narrative: Pt is a 79 yo F who presents to the ED after sent from transfusion center for complaint of generalized weakness, shortness of breath with exertion in the setting of hemoglobin of 6.3 and INR of 3.2. Patient states she has been receiving Aranesp twice monthly for the past year for her anemia. She also received her third injection in the series of Venofer today. She states she has had anemia for several years. Staff at the infusion center stated that patient complained of black tarry stools to them but patient denies this stating that she has mainly had bright red blood in her stool at times but not recently. Case was discussed with patient's daughter Sumi who stated that patient has had intermittent dark brown stools and bright red blood mixed in her stools for the past 2 weeks. Sumi states that patient has been eating less than usual recently. Denies any report of fever, chest pain, abdominal pain, urinary symptoms, recent travel or recent exposure to COVID. Sumi states that patient had a colonoscopy and EGD in January [address] Lucas at [facility]. She states at that time there was noted a cell abnormality but was not a good surgical candidate at that time so plan was for repeat colonoscopy which is scheduled in 2 weeks from now. Related Data Home Medications Medication Instructions Recorded Confirmed Vitamins B Complex 1 ea PO DAILY 09/11/14 06/27/19 acetaminophen [Tylenol] 650 mg PO BID 09/11/14 06/27/19 albuterol sulfate [ProAir HFA] 2 puff INHALATION BID 09/11/14 06/27/19 calcium carbonate-vitamin D3 1 tab PO BID 09/11/14 06/27/19 coenzyme Q10 [Co Q-10] 50 mg PO DAILY 09/11/14 06/27/19 ferrous sulfate 325 mg PO BID 09/11/14 06/27/19 furosemide 40 - 80 mg PO DIRECTED 09/11/14 06/27/19 loratadine 10 mg PO DAILY 09/11/14 06/27/19 melatonin 3 mg PO HS 09/11/14 06/27/19 nitroglycerin [Nitrostat] 0.4 mg SUBLINGUAL PRN PRN 09/11/14 06/27/19 omeprazole 20 mg PO BID 09/11/14 06/27/19 sertraline 100 mg PO DAILY 09/11/14 06/27/19 simvastatin 20 mg PO DAILY 09/11/14 06/27/19 valsartan [Diovan] 40 mg PO DAILY 09/11/14 06/27/19 warfarin [Coumadin] 2.5 - 5 mg PO DAILY 09/11/14 06/27/19 zafirlukast 20 mg PO BID 09/11/14 06/27/19 allopurinol 100 mg PO DAILY 06/27/19 06/27/19 carvedilol 12.5 mg PO BID 06/27/19 06/27/19 fluticasone propion-salmeterol 1 - 2 puff INHALATION DIRECTED 06/27/19 06/27/19 [Advair HFA] solifenacin [Vesicare] 10 mg PO BID 06/27/19 06/27/19 Allergies Allergy/AdvReac Type Severity Reaction Status Date / Time oxycodone AdvReac Intermediate Nausea Unverified 05/28/18 17:26 oxycodone HCl [From Percocet] AdvReac Intermediate Nausea Unverified 05/28/18 17:26 General Stated Complaint: SOB YOAN: 2 Review of Systems All systems reviewed & are unremarkable except as noted in HPI and below Constitutional Constitutional: Reports as per HPI, Denies chills, Denies fever(s), Reports poor appetite and Reports weakness Eyes Eyes: Denies blurry vision ENT Ears, Nose, Mouth, and Throat: Denies dizziness, Denies sore throat and Denies throat swelling Cardiovascular Cardiovascular: Denies chest pain and Denies dyspnea Respiratory Respiratory: Denies cough and Denies dyspnea Gastrointestinal Gastrointestinal: Denies abdominal pain, Denies diarrhea and Denies vomiting Genitourinary Genitourinary: Denies hematuria and Denies dysuria Musculoskeletal Musculoskeletal: Denies back pain and Denies numbness Integumentary/Breasts Skin/Breast: Denies lesions and Denies rash Neurologic Neurologic: Denies dizziness, Denies localized weakness, Denies numbness and Reports weakness Allergic/Immunologic Allergic/Immunologic: Denies throat swelling [facility] Medical History (Updated 06/27/19 @ 15:57 by Kalyn Daley MD) Adenocarcinoma of colon (Acute) Anemia (Chronic) Atrial fibrillation (Chronic) s/p pacemaker CHF (congestive heart failure) (Chronic) unknown EF Chronic bronchitis (Acute) Chronic cough (Acute) CKD (chronic kidney disease) stage 4, GFR 15-29 ml/min (Acute) COPD (chronic obstructive pulmonary disease) (Chronic) Depression (Chronic) Diverticulitis (Chronic) DJD (degenerative joint disease) (Chronic) Emphysema lung (Acute) Helicobacter pylori gastritis (Acute) Hemoptysis (Acute) in setting of MRSA tracheobronchitis and Neisseria infection Hyperlipidemia (Acute) Hypertension (Chronic) IBS (irritable bowel syndrome) (Chronic) Impaired fasting glucose (Acute) LBBB (left bundle branch block) (Acute) Macular degeneration (Acute) Mitral valve regurgitation (Chronic) Obstructive sleep apnea (Chronic) Not using oral appliance Pulmonary hypertension (Acute) PA pressures 55 mmHg Surgical History (Updated 06/27/19 @ 15:04 by Kalyn Daley MD) H/O colonoscopy with polypectomy (Acute) H/O hernia repair (Chronic) History of esophagogastroduodenoscopy (EGD) (Chronic) S/P bilateral cataract extraction (Acute) S/P cholecystectomy (Acute) S/P right rotator cuff repair (Acute) Status post total hip replacement, right (Acute) Status post total left knee replacement (Acute) Family History (Updated 06/27/19 @ 15:06 by Kalyn Daley MD) Mother Heart disease Stroke Hypertension Father Heart disease Brother Heart disease Cancer lung cancer - smoker Brother Cancer pancreatic cancer - smoker Social History (Updated 06/27/19 @ 15:07 by Kalyn Daley MD) Smoking/Tobacco Use Status: Former Tobacco Use Quit Date: 02/13/75 Tobacco: How many years used: 10 Alcohol Intake: former Drug use: Never Substance use type: does not use Do you feel safe at home: Yes Do you feel safe in your relationship?: Yes Exam Const General: cooperative, no acute distress and ill appearing chronically Orientation: alert, awake and oriented x3 HENMT Head: normal to inspection Face and sinus: normal facial exam Eyes General: appearance normal, both eyes and all related structures EOM: EOM intact bilaterally Neck Neck: normal visual inspection and No submandibular swelling Lymphatic: no lymphadenopathy noted Chest Chest: normal inspection of the chest and no tenderness Resp Effort & Inspection: normal respiratory effort and able to speak in complete sentences Auscultation: clear to auscultation bilaterally Cardio Rate: regular rate Rhythm: regular rhythm GI Inspection: normal to inspection Palpation: soft, not firm, not rigid and nontender Auscultation: hypoactive bowel sounds Rectal Exam - female: heme positive stool Rectal exam heme positive - female: gross blood (maroon colored stool) Skin General skin exam: no rashes or lesions noted Neuro General: patient alert, patient awake and patient oriented x3 Cognition: normal cognition Speech: speech normal Motor: muscle tone normal throughout Sensory Exam: no sensory deficits noted Extrem General: capillary refill normal, no calf tenderness bilaterally and no edema Other: b/l lower extremity edema, non pitting. Psych Appearance: grossly normal Mental Status: mental status grossly normal Speech and Movement: speech and movement normal Affect: normal affect Course Vital Signs Vital signs: Vital Signs Temperature 97.5 F L 06/27/19 11:11 Pulse 78 06/27/19 11:11 Respiratory Rate 24 06/27/19 11:11 Blood Pressure 94/77 L 06/27/19 11:11 Pulse Oximetry 97 06/27/19 11:11 Temperature 97.5 F L 06/27/19 11:11 Temperature Source Skin 06/27/19 11:11 Pulse 78 06/27/19 11:11 Respiratory Rate 24 06/27/19 11:11 Respiratory Effort 06/27/19 11:26 Blood Pressure 94/77 L 06/27/19 11:11 Blood Pressure Position Sitting 06/27/19 11:11 Pulse Oximetry 97 06/27/19 11:11 Oxygen Delivery Method Room Air 06/27/19 11:11 Oxygen Flow Rate 0 06/27/19 11:11 Pain Level 0 06/27/19 11:11
[2019-06-27 11:39] LABS: Lactate 0.9 mmol/L (0.6-1.4)
[2019-06-27 12:01] LABS: Magnesium 2.4 mg/dL (1.8-2.4); Troponin I < 0.05 ng/Ml (<0.06)
[2019-06-27 12:48] LABS: HCT 23.5 % (36.0-46.0)
[2019-06-27 12:49] LABS: HGB 6.6 g/dL (12.0-15.5)
[2019-06-27] MEDS: Phytonadione 5 MG TABLET 2.5 MG PO (13:13)
[2019-06-27] MEDS: Acetaminophen 325 MG TAB PO (14:08)
[2019-06-27] MEDS: Albuterol HFA 8 GM 60 PUFF INH IH ×3 (14:17→21:35)
--- NOTE | 2019-06-27 14:31 | W.PM.HP.N ---
Date of service: 06/27/19 Time of Service: 14:31 Assessment and Plan Assessment and plan (1) Symptomatic anemia: Status: Acute Assessment and plan: Due to acute on chronic blood loss/lower GI bleed in setting of supratherapeutic INR. Observe in ICU given borderline hypotension. Hold anticoagulation. OK to have clear liquids. Will trend H/H. Surgery is on standby in case the patient requires the colonoscopy as inpatient. (2) Supratherapeutic INR: Status: Acute Assessment and plan: As above. S/p vitamin K. Hold coumadin - recheck INR in am (3) GI bleed: Status: Chronic Assessment and plan: As above (4) Acute exacerbation of chronic bronchitis: Status: Acute Assessment and plan: This appears mild. CXR is suggestive of possible infectious pneumonitis; labs/workup not consistent with COVID-19, but testing is pending. Await sputum cx/procalcitonin. Low threshold to start antibiotics. (5) DVT prophylaxis: Status: Acute Assessment and plan: Hold coumadin due to supratherapeutic INR/bleeding (6) Discharge planning issues: Status: Acute Assessment and plan: Full code History of Present Illness History of Present Illness Chief Complaint: shortness of breath and dizziness; sent to ER from the infusion room Narrative: Ms Wilson is a 78 year old female with PMHx of adenocarcinoma of chronic anemia on aranesp, Afib s/p pacer on coumadin, colon s/p polypectomy, CKD 4, as well as non-oxygen dependent COPD (chronic bronchotis) and asthma, who had presented to [facility] infusion room for her iron infusion today when she was found to have H/H of 6.6/23.5 and have symptoms of shortness of breath and dizziness. The patient does not give a clear timeline to these symptoms, indicating that this is something that happens to her from time to time, but it is worse today. In the ED, she was hypotensive to 86/52. Her rectal exam revealed hemoccult positive maroon stool. The patient states she had a normal color bowel movement this morning. She was written for 1 unit of pRBCs and we were asked to admit the patient for further care. The patient's outpatient surgeon was already planning on routine EGD/colonoscopy in 2 weeks, but has now been able to move it up to next week. Additionally, the patient reports about 1 week of color change to her sputum (which is normally light yellow) and worsening of her chronic cough. Review of Systems Narrative: 12 systems reviewed. Pertinent positives and negatives are as per HPI. Additionally, the patient endorses feeling unsteady on her feet/wobbly/dizzy, denies fevers/chills, denies sick contacts, denies chest pain/pressure, endorses shortness of breath with exertion, but not at rest, denies nausea/abdominal pain. Denies seeing blood in stool. States had a dark BM 4 days ago after eating beets, but it was not black. [facility] Medical History (Updated 06/27/19 @ 15:57 by Kalyn Daley MD) Adenocarcinoma of colon (Acute) Anemia (Chronic) Atrial fibrillation (Chronic) s/p pacemaker CHF (congestive heart failure) (Chronic) unknown EF Chronic bronchitis (Acute) Chronic cough (Acute) CKD (chronic kidney disease) stage 4, GFR 15-29 ml/min (Acute) COPD (chronic obstructive pulmonary disease) (Chronic) Depression (Chronic) Diverticulitis (Chronic) DJD (degenerative joint disease) (Chronic) Emphysema lung (Acute) Helicobacter pylori gastritis (Acute) Hemoptysis (Acute) in setting of MRSA tracheobronchitis and Neisseria infection Hyperlipidemia (Acute) Hypertension (Chronic) IBS (irritable bowel syndrome) (Chronic) Impaired fasting glucose (Acute) LBBB (left bundle branch block) (Acute) Macular degeneration (Acute) Mitral valve regurgitation (Chronic) Obstructive sleep apnea (Chronic) Not using oral appliance Pulmonary hypertension (Acute) PA pressures 55 mmHg Surgical History (Updated 06/27/19 @ 15:04 by Kalyn Daley MD) H/O colonoscopy with polypectomy (Acute) H/O hernia repair (Chronic) History of esophagogastroduodenoscopy (EGD) (Chronic) S/P bilateral cataract extraction (Acute) S/P cholecystectomy (Acute) S/P right rotator cuff repair (Acute) Status post total hip replacement, right (Acute) Status post total left knee replacement (Acute) Family History (Updated 06/27/19 @ 15:06 by Kalyn Daley MD) Mother Heart disease Stroke Hypertension Father Heart disease Brother Heart disease Cancer lung cancer - smoker Brother Cancer pancreatic cancer - smoker Social History (Updated 06/27/19 @ 15:07 by Kalyn Daley MD) Smoking/Tobacco Use Status: Former Tobacco Use Quit Date: 02/13/75 Tobacco: How many years used: 10 Alcohol Intake: former Drug use: Never Substance use type: does not use Do you feel safe at home: Yes Do you feel safe in your relationship?: Yes Meds Home Medications and Allergies Home Medications Medication Instructions Recorded Confirmed Type Vitamins B Complex 1 ea PO DAILY 09/11/14 06/27/19 History acetaminophen [Tylenol] 650 mg PO BID 09/11/14 06/27/19 History albuterol sulfate [ProAir HFA] 2 puff INHALATION BID 09/11/14 06/27/19 History calcium carbonate-vitamin D3 1 tab PO BID 09/11/14 06/27/19 History coenzyme Q10 [Co Q-10] 50 mg PO DAILY 09/11/14 06/27/19 History ferrous sulfate 325 mg PO BID 09/11/14 06/27/19 History furosemide 40 - 80 mg PO DIRECTED 09/11/14 06/27/19 History loratadine 10 mg PO DAILY 09/11/14 06/27/19 History melatonin 3 mg PO HS 09/11/14 06/27/19 History nitroglycerin [Nitrostat] 0.4 mg SUBLINGUAL PRN PRN 09/11/14 06/27/19 History omeprazole 20 mg PO BID 09/11/14 06/27/19 History sertraline 100 mg PO DAILY 09/11/14 06/27/19 History simvastatin 20 mg PO DAILY 09/11/14 06/27/19 History valsartan [Diovan] 40 mg PO DAILY 09/11/14 06/27/19 History warfarin [Coumadin] 2.5 - 5 mg PO DAILY 09/11/14 06/27/19 History zafirlukast 20 mg PO BID 09/11/14 06/27/19 History allopurinol 100 mg PO DAILY 06/27/19 06/27/19 History carvedilol 12.5 mg PO BID 06/27/19 06/27/19 History fluticasone propion-salmeterol 1 - 2 puff INHALATION DIRECTED 06/27/19 06/27/19 History [Advair HFA] solifenacin [Vesicare] 10 mg PO BID 06/27/19 06/27/19 History Allergies Allergy/AdvReac Type Severity Reaction Status Date / Time oxycodone AdvReac Intermediate Nausea Unverified 05/28/18 17:26 oxycodone HCl [From Percocet] AdvReac Intermediate Nausea Unverified 05/28/18 17:26 Exam Narrative Exam Narrative: General: Very pleasant elderly female, slightly forgetful, not in acute distress, not pale (?wearing lipstick), able to speak in complete sentences while laying nearly flat, does not appear short of breath, wearing a mask, on room air. Sounds slightly hoarse. Coughing several times throughout the interview. Neurological: A&Ox3, slightly forgetful, no focal deficits Psychiatric: appropriate speech pattern/content Skin: visible skin intact HEENT: Atraumatic, normocephalic, EOMI, MMM, not pale, clear oropharynx, no lymphadenopathy, slight goiter, no JVD Cardiovascular: RRR, quiet [place] Lungs: coarse breath sounds B; bibasilar crackles clear with coughing Gastrointestinal: soft, nontender, nondistended Genitourinary: deferred Extremities: trace edema BLE's, no e/c. +1 pedal pulses B. Results Imaging Additional studies: CXR: Appearance of the chest may represent mild CHF. Infectious process not excluded on the basis of this examination. EKG: AV paced rhythm, HR 73 Labs Result diagrams: 06/27/19 11:25 Labs: Laboratory Results - last 24 hr 06/27/19 06/27/19 06/27/19 11:25 11:25 11:25 Hgb 6.6 L* Hct 23.5 L Lactate 0.9 Magnesium 2.4 Troponin I < 0.05 Patient ABO/Rh Antibody Screen Crossmatch 06/27/19 11:50 Hgb Hct Lactate Magnesium Troponin I Patient ABO/Rh O Positive Antibody Screen Negative Crossmatch See Detail Last Vital Signs Temp 36.0 C L 06/27/19 14:09 Pulse 72 06/27/19 14:09 Resp 23 06/27/19 14:09 BP 95/75 L 06/27/19 14:09 Pulse Ox 92 L 06/27/19 14:09 COVID-19 Screening Traveled to [place] from one of the affected countries or regions?: NO Recent travel in the [facility] within the last 14 days?: No Recent out of the country travel within the last 14 days?: No Exposure or possible exposure to illness during travel?: No Had IN PERSON contact w/suspected or confirmed C-19 person: No Have you had the following symptoms in the past few days?: No Symptoms noted since travel?: Lower Respiratory Medical treatment received for symptoms/illness related to travel?: dark green phlegm with cough denies fever
[2019-06-27 16:38] LABS: Bilirubin Negative (Negative); Blood Negative (Negative); Clarity Clear (Clear); Glucose Negative (Negative); Ketones Negative (Negative); Leukocyte Esterase Small (Negative); Nitrite Negative (Negative); Urobilinogen 0.2 EU/dL (Up TO 0.2); pH 6.5 (5-8)
[2019-06-27 16:47] LABS: Bacteria Many HPF (Negative); C & S Indicated? Yes; Casts Negative LPF (Negative); Crystals Negative HPF (Negative); Epithelial Cells Negative HPF (Negative); Mucus Negative (Negative); Other Cells Negative (Negative); RBC Negative HPF (0-2); WBC >50 HPF (0-5)
[2019-06-27 17:02] LABS: Procalcitonin 0.1 ng/mL
[2019-06-27] MEDS: cefTRIAXone 1 GM/50 ML BAG IVPB (18:35)
[2019-06-27] MEDS: Normal Saline 1,000 ML 75 ML IV (18:36)
--- NOTE | 2019-06-27 19:11 | SCONE_ITS ---
Date of service: 06/27/19 Time of Service: 14:30 Assessment and Plan Assessment and plan (1) GI bleed: Status: Chronic Assessment and plan: The patient has chronic anemia and may also be having a small amount of GI blood loss which is exacerbated by her elevated INR. Her anticoagulation has been held. There is not evidence of brisk blood loss at this time. Her follow up colonoscopy with Dr. Lucas has been rescheduled for this coming Monday. It is safe at this point to proceed as planned with outpatient evaluation, but if she has worsening symptoms or anemia, please contact the surgeon manager of investigations. History of Present Illness Narrative: This patient with chronic anemia presented for an iron infusion today and was noted to have a slight decrease in her HGB from 6.5 to 6.3 and hypotension. She had maroon stool found on KATE which was obviously heme positive. The patient reports a normal stool this am. She had some bloody appearing stool 3 days ago that she attributes to eating beets. She denies abdominal pain. Dr. Lucas performed an EGD/colonoscopy 01/2019 with an early colon cancer found, possible within a polyp. She is not a good surgical candidate and a follow up colonoscopy was planned for a few weeks from now. [facility] Medical History (Updated 06/27/19 @ 15:57 by Kalyn Daley MD) Adenocarcinoma of colon (Acute) Anemia (Chronic) Atrial fibrillation (Chronic) s/p pacemaker CHF (congestive heart failure) (Chronic) unknown EF Chronic bronchitis (Acute) Chronic cough (Acute) CKD (chronic kidney disease) stage 4, GFR 15-29 ml/min (Acute) COPD (chronic obstructive pulmonary disease) (Chronic) Depression (Chronic) Diverticulitis (Chronic) DJD (degenerative joint disease) (Chronic) Emphysema lung (Acute) Helicobacter pylori gastritis (Acute) Hemoptysis (Acute) in setting of MRSA tracheobronchitis and Neisseria infection Hyperlipidemia (Acute) Hypertension (Chronic) IBS (irritable bowel syndrome) (Chronic) Impaired fasting glucose (Acute) LBBB (left bundle branch block) (Acute) Macular degeneration (Acute) Mitral valve regurgitation (Chronic) Obstructive sleep apnea (Chronic) Not using oral appliance Pulmonary hypertension (Acute) PA pressures 55 mmHg Surgical History (Updated 06/27/19 @ 15:04 by Kalyn Daley MD) H/O colonoscopy with polypectomy (Acute) H/O hernia repair (Chronic) History of esophagogastroduodenoscopy (EGD) (Chronic) S/P bilateral cataract extraction (Acute) S/P cholecystectomy (Acute) S/P right rotator cuff repair (Acute) Status post total hip replacement, right (Acute) Status post total left knee replacement (Acute) Family History (Updated 06/27/19 @ 15:06 by Kalyn Daley MD) Mother Heart disease Stroke Hypertension Father Heart disease Brother Heart disease Cancer lung cancer - smoker Brother Cancer pancreatic cancer - smoker Social History (Updated 06/27/19 @ 15:07 by Kalyn Daley MD) Smoking/Tobacco Use Status: Former Tobacco Use Quit Date: 02/13/75 Tobacco: How many years used: 10 Alcohol Intake: former Drug use: Never Substance use type: does not use Do you feel safe at home: Yes Do you feel safe in your relationship?: Yes Results Last Vital Signs Temp 96.3 F L 06/27/19 17:17 Pulse 89 06/27/19 17:08 Resp 24 06/27/19 18:00 BP 130/58 L 06/27/19 17:08 Pulse Ox 95 06/27/19 16:06 Labs Result diagrams: 06/27/19 11:25 Labs: Laboratory Results - last 24 hr 06/27/19 06/27/19 06/27/19 11:25 11:25 11:25 Hgb 6.6 L* Hct 23.5 L Lactate 0.9 Magnesium 2.4 Troponin I < 0.05 Procalcitonin 0.1 Urine Color Urine Clarity Urine pH Ur Specific [place] Urine Protein Urine Ketones Urine Blood Urine Nitrite Urine Bilirubin Urine Urobilinogen Ur Leukocyte Esterase Urine RBC Urine WBC Ur Epithelial Cells Urine Crystals Urine Bacteria Urine Casts Urine Mucus Urine Other Ur Culture Indicated? Urine Glucose Patient ABO/Rh Antibody Screen Crossmatch 06/27/19 06/27/19 11:50 16:15 Hgb Hct Lactate Magnesium Troponin I Procalcitonin Urine Color Yellow Urine Clarity Clear Urine pH 6.5 Ur Specific [place] 1.020 Urine Protein Negative Urine Ketones Negative Urine Blood Negative Urine Nitrite Negative Urine Bilirubin Negative Urine Urobilinogen 0.2 Ur Leukocyte Esterase Small H Urine RBC Negative Urine WBC >50 H Ur Epithelial Cells Negative Urine Crystals Negative Urine Bacteria Many Urine Casts Negative Urine Mucus Negative Urine Other Negative Ur Culture Indicated? Yes Urine Glucose Negative Patient ABO/Rh O Positive Antibody Screen Negative Crossmatch See Detail
[2019-06-27] MEDS: DOXYCYCLINE 100 MG in Normal Saline 100 ML IVPB (21:10)
[2019-06-27] MEDS: Calcium 600mg/Vit D 200U TAB 1 TAB PO (21:11)
[2019-06-27] MEDS: Simvastatin 20 MG TAB PO (21:12)
[2019-06-27] MEDS: Acetaminophen 325 MG TAB 650 MG PO (21:12)
[2019-06-27] MEDS: Melatonin 3 MG TAB PO (21:12)
[2019-06-27] MEDS: Omeprazole 20 MG CAPCR PO (21:12)
[2019-06-27] MEDS: Ferrous Sulfate 325 MG TAB PO (21:12)
[2019-06-27 23:29] LABS: HCT 23.5 % (36.0-46.0)
[2019-06-27 23:32] LABS: HGB 6.9 g/dL (12.0-15.5)
[2019-06-28] VITALS (25 sets, daily range): BP systolic 95–153; BP diastolic 37–108; PULSE 68–87; RESP 15–95; TEMP 35.6–37.3; O2SAT 94–98
[2019-06-28] MEDS: Normal Saline Flush 10 ML SYR IVP (01:13)
[2019-06-28] MEDS: Albuterol HFA 8 GM 60 PUFF INH IH ×4 (01:13→20:31)
[2019-06-28] MEDS: Acetaminophen 325 MG TAB PO (02:07)
[2019-06-28] MEDS: Carvedilol 12.5 MG TAB PO ×2 (06:13→20:29)
[2019-06-28 07:14] LABS: Abs Immature Grans 0.01 k/cumm (0.0-0.09); Absolute Eosinophil Count 0.15 k/cumm (0.0-0.7); Absolute Lymphocyte Count 0.64 k/cumm (1.2-3.4); Absolute Monocyte Count 0.44 k/cumm (0.11-0.7); Absolute Neutrophil Count 4.05 k/cumm (1.2-6.7); Eosinophils % 2.8; HCT 26.4 % (36.0-46.0); HGB 7.8 g/dL (12.0-15.5); Immature Grans % 0.2 %; Lymphocytes % 12.1; Mean Corp. HGB Concentration 29.5 g/dL (32.0-36.0); Mean Corpuscular Hemoglobin 30.7 pg (27.0-33.0); Mean Corpuscular Volume 103.9 fL (80-95); Mean Platelet Volume 9.8 fL (8.0-11.0); Monocytes % 8.3; Neutrophils % 76.6; Platelet Count 184 x1000/uL (130-400); RBC 2.54 m/cumm (4.00-5.20); RBC Distribution Width 18.7 % (11.7-14.6); White Blood Cell Count 5.29 k/cumm (4.4-10.8)
[2019-06-28 07:21] LABS: INR 2.8 (0.9-1.1); Prothrombin Time 27.7 sec (9.3-11.0)
[2019-06-28 07:25] LABS: Anion Gap 8.7 mmol/L (3-11); BUN 61 mg/dL (7-18); CO2 25.3 mmol/L (21.0-32.0); CREATININE 2.44 mg/dL (0.55-1.02); Calcium 8.1 mg/dL (8.5-10.1); Chloride 105 mmol/L (98-107); Estimated GFR 19.11 (mL/min/1.73m2); Glucose 80 mg/dL (74-106); Magnesium 1.9 mg/dL (1.8-2.4); Sodium 139 mmol/L (136-145)
--- NOTE | 2019-06-28 07:49 | PHA.REVIEW ---
Pharmacy Admission Review - Admission Clinical Review (Last Updated 06/27/19 @ 15:08 by Kalyn Daley MD) Discharge planning issues (Acute) DVT prophylaxis (Acute) Acute exacerbation of chronic bronchitis (Acute) Symptomatic anemia (Acute) Supratherapeutic INR (Acute) oxycodone Adverse Reaction (Intermediate, Unverified 05/28/18 17:26) Nausea oxycodone HCl [From Percocet] Adverse Reaction (Intermediate, Unverified 05/28/18 17:26) Nausea Height 5 ft Weight 88.3 kg - Comments Comments/Follow Ups: GI Bleed & Lung opacities..Pneumonitis - Renal Dosing Renal Dosing: BUN 61 mg/dL (7-18) H 06/28/19 06:08 Creatinine 2.44 mg/dL (0.55-1.02) H 06/28/19 06:08 Medications needing adjustments: Reviewed (est CrCl~ 12.4 mL/min (SCr up from admission (2.44 ^ 2.63) Meds -OK) - Anticoagulation Anticoagulation: Hgb 7.8 g/dL (12.0-15.5) L 06/28/19 06:08 Hct 26.4 % (36.0-46.0) L 06/28/19 06:08 Plt Count 184 x1000/uL (130-400) 06/28/19 06:08 INR 2.8 (0.9-1.1) H 06/28/19 06:08 Creatinine 2.44 mg/dL (0.55-1.02) H 06/28/19 06:08 DVT Prohphylaxis: Reviewed (GI Bleed, low H&H High INR (3.2) (Warfarin HELD)) - Opiate Usage Evaluate Pain Scale/Pains Meds: N/A Scheduled Bowel Reg ordered if on Opiates?: Yes - Relevant Labs Sodium 139 mmol/L (136-145) 06/28/19 06:08 Potassium 5.0 mmol/L (3.5-5.1) 06/28/19 06:08 Chloride 105 mmol/L (98-107) 06/28/19 06:08 Magnesium 1.9 mg/dL (1.8-2.4) 06/28/19 06:08 Electrolytes, C-Reactive P, ESR: Reviewed (has two sets of Labs this admission and Infusion room acct) - DM Control DM Control: Glucose 80 mg/dL (74-106) 06/28/19 06:08 Insulin Dosing: N/A - Heart Failure/GA Heart Failure/GA: Troponin I < 0.05 ng/Ml (<0.06) 06/27/19 11:25 EF%, JOHANA's, B-Blockers, Diuretics: Reviewed (Coreg 12.5mg bid, NTG) - BP Control BP Control: Blood Pressure [Left Wrist] 116/44 Blood Pressure [Left Wrist] 113/47 Blood Pressure 125/45 Blood Pressure 125/51 Blood Pressure 125/51 Blood Pressure 125/51 Blood Pressure 116/44 Blood Pressure 116/44 Blood Pressure 116/44 Blood Pressure 100/37 Blood Pressure 100/37 Blood Pressure 113/47 Blood Pressure 113/47 Blood Pressure 116/36 Blood Pressure 106/49 Blood Pressure 114/50 If elevated: Reviewed (BP stable) - Qtc Review If Elevated: Reviewed (QTc-514 (Sertraline, Omeprazole, Vesicare all home meds)) - IV to PO Switch IV Medications: Reviewed (On IV Rocephin & Doxycyckline for suspected pneumonitis) - Home Meds Home Med List reviewed: Reviewed (PatSoham Zafirlukast & Co-enyzme Q, Valsartan not ordered)
[2019-06-28] MEDS: Acetaminophen 325 MG TAB 650 MG PO ×2 (08:19→20:30)
[2019-06-28] MEDS: Calcium 600mg/Vit D 200U TAB 1 TAB PO ×2 (08:21→20:29)
[2019-06-28] MEDS: Omeprazole 20 MG CAPCR PO ×2 (08:21→20:29)
[2019-06-28] MEDS: Budesonide/Formoterol 160/4.5 6 GM 60 PUFF INH IH (08:23)
[2019-06-28] MEDS: DOXYCYCLINE 100 MG in Normal Saline 100 ML IVPB ×2 (08:26→20:30)
[2019-06-28 08:32] LABS: COVID-19 RT-PCR UVMMC Result Negative (Negative)
--- NOTE | 2019-06-28 08:59 | NUR.NOTE ---
Incorrect BP: Patient 120s systolic. Nursing Note:
[2019-06-28] MEDS: Allopurinol 100 MG TAB PO (09:05)
[2019-06-28] MEDS: Loratidine 10 MG TAB PO (09:05)
[2019-06-28] MEDS: Sertraline 50 MG TAB 100 MG PO (09:05)
[2019-06-28] MEDS: Vitamins B Comp w/C TAB 1 TAB PO (09:05)
[2019-06-28] MEDS: Ferrous Sulfate 325 MG TAB PO ×2 (09:06→20:30)
[2019-06-28] MEDS: Furosemide 40 MG TAB 80 MG PO (09:06)
--- NOTE | 2019-06-28 10:01 | PGE_ITS ---
Date of Service Date of service: 06/28/19 Time of Service: 10:01 Assessment and Plan Assessment and plan (1) Symptomatic anemia: Status: Acute Assessment and plan: Due to acute on chronic blood loss/lower GI bleed in setting of supratherapeutic INR. s/p 2 units pRBCs. Will recheck H/H at noon. BPs are better and not orthostatic. Defer advancement of diet to general surgery. Continue to hold anticoagulation. General surgery is on standby in case the patient requires the colonoscopy as inpatient. Otherwise, planned for colonoscopy next week by Dr Lucas. (2) Supratherapeutic INR: Status: Resolved Assessment and plan: S/p vitamin K. Hold coumadin until colonoscopy next week. (3) GI bleed: Status: Chronic Assessment and plan: As above (4) Acute exacerbation of chronic bronchitis: Status: Acute Assessment and plan: Add prednisone today. Initiated on doxy/ceftriaxone based on sputum color change and borderline procalcitonin. COVID-19 negative Continue prn albuterol, scheduled symbicort. Await sputum cx results. (5) DVT prophylaxis: Status: Acute Assessment and plan: Hold coumadin in light of bleeding. Do not start alternative DVT ppx while INR therapeutic (6) Discharge planning issues: Status: Acute Assessment and plan: Full code Xfer out of ICU Subjective Subjective Interval history since last seen: Feels a lot better today. Did have a BM - still heme positive, but brown, no blood. Overnight, had streaks of BRB over otherwise brown stool. Denies dizziness, chest pain, shortness of breath, abdominal pain. Cough is better. Not orthostatic. Exam Narrative Exam Narrative: General: Very pleasant elderly female, Looks much better, A&Ox3 HEENT: EOMI, MMM Cardiovascular: RRR, quiet [place] Lungs: coarse breath sounds B - rhonchi more pronounced; worsening crackles at B bases Gastrointestinal: soft, nontender, nondistended Extremities: +1 edema BLE's, no e/c. +1 pedal pulses B. Objective Objective Clinical Data: Abnormal lab results 06/27/19 06/27/19 06/27/19 Range/Units 11:25 11:50 16:15 RBC (4.00-5.20) m/cumm Hgb 6.6 L* (12.0-15.5) g/dL Hct 23.5 L (36.0-46.0) % MCV (80-95) fL MCHC (32.0-36.0) g/dL RDW (11.7-14.6) % Absolute Lymphocytes (1.2-3.4) k/cumm PT (9.3-11.0) sec INR (0.9-1.1) BUN (7-18) mg/dL Creatinine (0.55-1.02) mg/dL Calcium (8.5-10.1) mg/dL Ur Leukocyte Esterase Small H (Negative) Urine WBC >50 H (0-5) HPF Crossmatch See Detail 06/27/19 06/28/19 06/28/19 Range/Units 23:15 06:08 06:08 RBC 2.54 L (4.00-5.20) m/cumm Hgb 6.9 L* 7.8 L (12.0-15.5) g/dL Hct 23.5 L 26.4 L (36.0-46.0) % MCV 103.9 H D (80-95) fL MCHC 29.5 L (32.0-36.0) g/dL RDW 18.7 H (11.7-14.6) % Absolute Lymphocytes 0.64 L (1.2-3.4) k/cumm PT (9.3-11.0) sec INR (0.9-1.1) BUN 61 H (7-18) mg/dL Creatinine 2.44 H (0.55-1.02) mg/dL Calcium 8.1 L (8.5-10.1) mg/dL Ur Leukocyte Esterase (Negative) Urine WBC (0-5) HPF Crossmatch 06/28/19 Range/Units 06:08 RBC (4.00-5.20) m/cumm Hgb (12.0-15.5) g/dL Hct (36.0-46.0) % MCV (80-95) fL MCHC (32.0-36.0) g/dL RDW (11.7-14.6) % Absolute Lymphocytes (1.2-3.4) k/cumm PT 27.7 H (9.3-11.0) sec INR 2.8 H (0.9-1.1) BUN (7-18) mg/dL Creatinine (0.55-1.02) mg/dL Calcium (8.5-10.1) mg/dL Ur Leukocyte Esterase (Negative) Urine WBC (0-5) HPF Crossmatch Vital Signs Temperature 35.9 C L 06/28/19 07:55 Temperature Source Temporal Artery Scan 06/28/19 07:55 Pulse 72 06/28/19 09:09 Pulse 73 06/28/19 08:01 Respiratory Rate 21 06/28/19 08:01 Respiratory Effort 06/28/19 07:55 Respiratory Depth Normal 06/28/19 07:55 Respiratory Pattern Normal 06/28/19 07:55 Blood Pressure 124/44 L 06/28/19 09:09 Blood Pressure Mean 61 06/28/19 08:00 Blood Pressure Position Supine 06/28/19 07:55 Pulse Oximetry 97 06/28/19 07:56 Oxygen Delivery Method Room Air 06/28/19 07:55 Oxygen Flow Rate 0 06/28/19 07:55 Pain Level 0 06/28/19 08:19 Intake & Output 06/27/19 06/27/19 06/28/19 11:59 23:59 11:59 Intake Total 1180 / 1180 2170 / 2170 Output Total 650 / 650 725 / 725 Balance 530 / 530 1445 / 1445 Weight 87.09 kg 88.3 kg Intake: IV 150 / 150 1000 / 1000 Oral 690 / 690 870 / 870 Blood Product 340 / 340 250 / 250 Rbc Leuko Reduced Unit 340 / 340 [id number] Rbc Leuko Reduced Unit 250 / 250 [id number] Other 50 / 50 Rbc Leuko Reduced Unit 50 / 50 [id number] Output: Urine 650 / 650 575 / 575 Stool 150 / 150 Other: Urine Color Yellow Yellow Urine Appearance Clear Cloudy Urine Odor Normal Comment mixed with stool Mixed with stool. Amount approximated Stool Occult Blood Positive Positive Stool Size Small Large Stool Characteristics Soft Soft Formed Formed Brown Brown Black Voiding Methods Bedside Commode Bedside Commode Laboratory Results WBC 5.29 k/cumm (4.4-10.8) 06/28/19 06:08 RBC 2.54 m/cumm (4.00-5.20) L 06/28/19 06:08 Hgb 7.8 g/dL (12.0-15.5) L 06/28/19 06:08 Hct 26.4 % (36.0-46.0) L 06/28/19 06:08 MCV 103.9 fL (80-95) H D 06/28/19 06:08 MCH 30.7 pg (27.0-33.0) 06/28/19 06:08 MCHC 29.5 g/dL (32.0-36.0) L 06/28/19 06:08 RDW 18.7 % (11.7-14.6) H 06/28/19 06:08 Plt Count 184 x1000/uL (130-400) 06/28/19 06:08 MPV 9.8 fL (8.0-11.0) 06/28/19 06:08 Immature Gran % 0.2 % 06/28/19 06:08 Neutrophils % 76.6 06/28/19 06:08 Lymphocytes % 12.1 06/28/19 06:08 Monocytes % 8.3 06/28/19 06:08 Eosinophils % 2.8 06/28/19 06:08 Basophils % 0.0 06/28/19 06:08 Absolute Neutrophils 4.05 k/cumm (1.2-6.7) 06/28/19 06:08 Absolute Lymphocytes 0.64 k/cumm (1.2-3.4) L 06/28/19 06:08 Absolute Monocytes 0.44 k/cumm (0.11-0.7) 06/28/19 06:08 Absolute Eosinophils 0.15 k/cumm (0.0-0.7) 06/28/19 06:08 Absolute Basophils 0.00 k/cumm (0.0-0.2) 06/28/19 06:08 PT 27.7 sec (9.3-11.0) H 06/28/19 06:08 INR 2.8 (0.9-1.1) H 06/28/19 06:08 Sodium 139 mmol/L (136-145) 06/28/19 06:08 Potassium 5.0 mmol/L (3.5-5.1) 06/28/19 06:08 Chloride 105 mmol/L (98-107) 06/28/19 06:08 Carbon Dioxide 25.3 mmol/L (21.0-32.0) 06/28/19 06:08 Anion Gap 8.7 mmol/L (3-11) 06/28/19 06:08 BUN 61 mg/dL (7-18) H 06/28/19 06:08 Creatinine 2.44 mg/dL (0.55-1.02) H 06/28/19 06:08 Estimated GFR/1.73 m2 19.11 (mL/min/1.73m2) 06/28/19 06:08 Glucose 80 mg/dL (74-106) 06/28/19 06:08 Lactate 0.9 mmol/L (0.6-1.4) 06/27/19 11:25 Calcium 8.1 mg/dL (8.5-10.1) L 06/28/19 06:08 Magnesium 1.9 mg/dL (1.8-2.4) 06/28/19 06:08 Troponin I < 0.05 ng/Ml (<0.06) 06/27/19 11:25 Procalcitonin 0.1 ng/mL 06/27/19 11:25 Urine Color Yellow (Yellow) 06/27/19 16:15 Urine Clarity Clear (Clear) 06/27/19 16:15 Urine pH 6.5 (5-8) 06/27/19 16:15 Ur Specific [place] 1.020 (1.005-1.025) 06/27/19 16:15 Urine Protein Negative mg/dL (Negative) 06/27/19 16:15 Urine Ketones Negative mg/dL (Negative) 06/27/19 16:15 Urine Blood Negative (Negative) 06/27/19 16:15 Urine Nitrite Negative (Negative) 06/27/19 16:15 Urine Bilirubin Negative (Negative) 06/27/19 16:15 Urine Urobilinogen 0.2 EU/dL (Up TO 0.2) 06/27/19 16:15 Ur Leukocyte Esterase Small (Negative) H 06/27/19 16:15 Urine RBC Negative HPF (0-2) 06/27/19 16:15 Urine WBC >50 HPF (0-5) H 06/27/19 16:15 Ur Epithelial Cells Negative HPF (Negative) 06/27/19 16:15 Urine Crystals Negative HPF (Negative) 06/27/19 16:15 Urine Bacteria Many HPF (Negative) 06/27/19 16:15 Urine Casts Negative LPF (Negative) 06/27/19 16:15 Urine Mucus Negative (Negative) 06/27/19 16:15 Urine Other Negative (Negative) 06/27/19 16:15 Ur Culture Indicated? Yes 06/27/19 16:15 Urine Glucose Negative mg/dL (Negative) 06/27/19 16:15 COVID-19 PCR Negative (Negative) 06/27/19 12:45 Nasopharyn COVID-19 PCR Not Applicable 06/27/19 12:45 Ref Test Perform Site [facility] lab 06/27/19 12:45 Patient ABO/Rh O Positive 06/27/19 11:50 Antibody Screen Negative 06/27/19 11:50 Crossmatch See Detail 06/27/19 11:50
--- NOTE | 2019-06-28 10:11 | INITIAL_ITS ---
- If Service Date Differs Date of service: 06/28/19 Time of Service: 10:11 Care Management Initial Assess REASON FOR HOSPITALIZATION:: Symptomatic Anemia, Lower GI bleed PAST MEDICAL HISTORY/PAST SURGICAL HISTORY:: Medical History (Updated 06/27/19 @ 15:57 by Kalyn Daley MD). Adenocarcinoma of colon (Acute). Anemia (Chronic). Atrial fibrillation (Chronic). s/p pacemaker. CHF (congestive heart failure) (Chronic). unknown EF. Chronic bronchitis (Acute). Chronic cough (Acute). CKD (chronic kidney disease) stage 4, GFR 15-29 ml/min (Acute). COPD (chronic obstructive pulmonary disease) (Chronic). Depression (Chronic). Diverticulitis (Chronic). DJD (degenerative joint disease) (Chronic). Emphysema lung (Acute). Helicobacter pylori gastritis (Acute). Hemoptysis (Acute). in setting of MRSA tracheobronchitis and Neisseria infection. Hyperlipidemia (Acute). Hypertension (Chronic). IBS (irritable bowel syndrome) (Chronic). Impaired fasting glucose (Acute). LBBB (left bundle branch block) (Acute). Macular degeneration (Acute). Mitral valve regurgitation (Chronic). Obstructive sleep apnea (Chronic). Not using oral appliance. Pulmonary hypertension (Acute). PA pressures 55 mmHg. Surgical History (Updated 06/27/19 @ 15:04 by Kalyn Daley MD). H/O colonoscopy with polypectomy (Acute). H/O hernia repair (Chronic). History of esophagogastroduodenoscopy (EGD) (Chronic). S/P bilateral cataract extraction (Acute). S/P cholecystectomy (Acute). S/P right rotator cuff repair (Acute). Status post total hip replacement, right (Acute). Status post total left knee replacement (Acute) PREVIOUS FUNCTIONAL STATUS/SOCIAL/FAMILY SUPPORTS:: Elizabeth lives in [place] with her daughter, Sumi and son in law, Carter. She is retired from working in a factory and various retail jobs. She is independent at baseline. CURRENT FUNCTIONAL STATUS:: Elizabeth was sitting up in her chair when CM met with her. She reported that she was feeling better today and would like to return h ome. CM discussed Palliative care with her, and she declined to see them at this time. She stated again, prior to CM leaving the room, that she would prefer to wait for her EGD appointment at home. CM will continue to follow. ADVANCE DIRECTIVES:: On file, Sumi listed as agent. Has patient been provided with information about the portal?: No Did the patient sign up for the portal?: No CODE STATUS:: Full Code INSURANCE COVERAGE / FINANCIAL ISSUES:: [facility]/ [facility] CURRENT HOME/COMMUNITY SERVICES/EQUIPMENT:: No equipment or community services at this time. PRIMARY CARE PHYSICIAN:: Lyric Jackson POTENTIAL DISCHARGE NEEDS:: Evaluations for further needs, follow up appointments PATIENT/FAMILY EDUCATION NEEDS:: Review discharge instructions regarding activity levels and medications, discussion of self care needs including ask me three, and goals of care. ANTICIPATED BARRIERS TO DISCHARGE:: None identified at this time. TRANSPORTATION:: via private vehicle with family PLAN:: Anticipate Elizabeth will return home when medically cleared. She has a follow up EGD appointment next week at [facility]. She will be transported home via private vehicle by family when ready. CM will continue to follow and support discharge planning considerations.
[2019-06-28] MEDS: predniSONE 20 MG TAB 40 MG PO (12:07)
[2019-06-28 12:19] LABS: HCT 31.6 % (36.0-46.0); HGB 9.5 g/dL (12.0-15.5); Potassium 4.8 mmol/L (3.5-5.1)
--- NOTE | 2019-06-28 12:55 | W.NUTRFU ---
Date of service: 06/28/19 Time of Service: 12:55 Nutritional Follow up NOTE: 79 year old female admitted to ICU s/p iron infusion at Infusion Lab. PMH: adenocarcinoma, GI bleed, CKD 4, COPD, hx of dark stools and poor appetite. Meds include: Negrito Vit D, FeS04, lasix and B complex. Following Heart Healthy Diet with excellent intake (100% dinner last night, breakfast today). BMI indicates class 2 obesity. No nutritional recommendations required at this time. Time Spent in Nutritional Counseling and Treatment: 0 time spent face to face
--- NOTE | 2019-06-28 13:19 | IN_ITS ---
Date of service: 06/28/19 Time of Service: 13:19 PT Notes Visit Reasons: SYPTOMATIC ANEMIA,LOWER GI BLEEDING,COVID-19 [facility] Physical Therapy Inpatient Initial Evaluation Date: 06/28/2019 Referring Doctor: Kalyn Daley MD PT Orders: PT CONSULT: Limited ability Precautions: Fall. Standard. Activity as tolerated. Patient Profile/Admitting Diagnosis: Elizabeth is a 79-year-old female who presented to the ED on 06/27/2019 with chief complaints of generalized weakness, difficulty with breathing on exertion, intermittent black stools for the past 1 to 2 weeks prior to presentation, and dizziness. Patient is diagnosed with symptomatic anemia and received 2 units of PRBCs, supratherapeutic INR, GI bleed, and chronic bronchitis exacerbation. Patient tested negative for COVID-19 as of 06/28/2019. PMHX: Medical History (Updated 06/27/19 @ 15:57 by Kalyn Daley MD) Adenocarcinoma of colon (Acute) Anemia (Chronic) Atrial fibrillation (Chronic) s/p pacemaker CHF (congestive heart failure) (Chronic) unknown EF Chronic bronchitis (Acute) Chronic cough (Acute) CKD (chronic kidney disease) stage 4, GFR 15-29 ml/min (Acute) COPD (chronic obstructive pulmonary disease) (Chronic) Depression (Chronic) Diverticulitis (Chronic) DJD (degenerative joint disease) (Chronic) Emphysema lung (Acute) Helicobacter pylori gastritis (Acute) Hemoptysis (Acute) in setting of MRSA tracheobronchitis and Neisseria infection Hyperlipidemia (Acute) Hypertension (Chronic) IBS (irritable bowel syndrome) (Chronic) Impaired fasting glucose (Acute) LBBB (left bundle branch block) (Acute) Macular degeneration (Acute) Mitral valve regurgitation (Chronic) Obstructive sleep apnea (Chronic) Not using oral appliance Pulmonary hypertension (Acute) PA pressures 55 mmHg Surgical History (Updated 06/27/19 @ 15:04 by Kalyn Daley MD) H/O colonoscopy with polypectomy (Acute) H/O hernia repair (Chronic) History of esophagogastroduodenoscopy (EGD) (Chronic) S/P bilateral cataract extraction (Acute) S/P cholecystectomy (Acute) S/P right rotator cuff repair (Acute) Status post total hip replacement, right (Acute) Status post total left knee replacement (Acute) Social History/Home Situation: Patient lives with son and [id number] in a private home with 4 steps to enter with rails on both sides. She is independent with all mobility ADL performance using a single-point cane and reports no falls for the past 12 months. Equipment Owned/DME: Single-point cane, front wheeled walker Subjective: Elizabeth is very pleasant and compliant during PT session. She demonstrated minimal difficulty negotiating steps reporting that her knees are weak. She denies any headache, chest pain, and dizziness throughout the session. Objective: General Observation: Telemetry monitoring in place. Edema to bilateral legs. Obese. Mental Status: Alert and oriented x4 Pain: None reported Vital Signs: Heart rate ranged from 75 to 98 bpm throughout PT session. ROM: Right Upper Extremity: Shoulder Flexion allows up to 90 degrees. Shoulder abduction allows up to 90 degrees. Elbow flexion WFL. Wrist flexion WFL. Opening and closing of hand WFL. Left Upper Extremity: Shoulder Flexion WFL. Shoulder abduction WFL. Elbow flexi on WFL. Wrist flexion WFL. Opening and closing of hand WFL. Right Lower Extremity: Hip flexion up to 10 degrees beyond 90 while seated on the edge of the chair. Hip abduction WFL. Knee flexion WFL. Ankle dorsiflexion WFL. Ankle plantarflexion WFL. Left Lower Extremity: Hip flexion up to 10 degrees beyond 90 while seated on the edge of the chair. Hip abduction WFL. Knee flexion WFL. Ankle dorsiflexion WFL. Ankle plantarflexion WFL. Strength: Right Upper Extremity: Shoulder flexors 3-/5. Shoulder abductors 3-/5. Elbow flexors 4-/5. Elbow extensors 4-/5. Mother Repairer strong. Left Upper Extremity: Shoulder flexors 3-/5. Shoulder abductors 3-/5. Elbow flexors 4/5. Elbow extensors 4/5. Mother Repairer strong. Right Lower Extremity: Hip flexors 3-/5. Hip abductors 4-/5. Knee flexors 4/5. Knee extensors 4-/5. Ankle dorsiflexors 4-/5. Ankle plantarflexors 4-/5. Left Lower Extremity:Hip flexors 3-/5. Hip abductors 4-/5. Knee flexors 4/5. Knee extensors 4-/5. Ankle dorsiflexors 4-/5. Ankle plantarflexors 4-/5. Sensation: Intact as to pain and pressure on bilateral lower extremities. Bed Mobility/Transfers: Sit to stand standby assist using BUE for support Stand to sit standby assist using BUE for support Bed to chair standby assist using BUE for support Chair to bed standby assist using BUE for support Gait: Patient tolerated level surface ambulation of 100 feet x 2 using single- point cane with full weightbearing and contact-guard assist. Reciprocal swing through gait pattern. Step height decreased. Cassie decreased. 1 LOB noted towards the end of the second trip back to her room, but no fall. Patient also tolerated up-and-down six 4 inch steps and four 6 inch steps while holding onto bilateral rails with step to gait pattern requiring contact-guard assist. Patient did express discomfort on bilateral knees during activity. Balance: Static Sitting: Normal Dynamic Sitting: Normal Static Standing: Fair Dynamic Standing: Fair Special Tests: Mobility Limitations Standardized Measure [facility] AM-PAC 6 clicks Basic Mobility Inpatient Short Form: Raw Score: 20 CMS Score: 36% deficit 4 stage balance test: Patient was able to maintain putting feet together and semi-tandem for 10 seconds but was unable to do so with full tandem and 1 legged stance indicating at risk for falls without the use of an assistive device. Informed Consent/Education: Patient instructed in purpose of PT consult and plan of care. Assessment: Patient demonstrates decreased activity tolerance, generalized weakness, need for assistive device for all mobility ADL performance, unsteadiness of gait, difficulty with walking, and impaired balance warranting skilled PT services. Patient presents with clinical signs and symptoms consistent with current/admitting diagnoses that have resulted to mobility limitations, gait instability, generalized weakness, and impairment of motor control as demonstrated by the following impairment level findings: 1. Decreased strength to B LE major muscle groups 2. Impaired standing balance 3. Impaired activity tolerance 4. Limitation of joint range of motion in right shoulder and bilateral hips Impairments are contributing to the following functional limitations: 1. Inability to safely ambulate without assistive device and physical assistance 2. Increase completion time for mobility ADL performance 3. Increased fall risk 4. Inability to negotiate steps alone safely Patient is assessed as a 81528 moderate complexity based on the following: History: 79-year-old female with impairment level findings functional li mitations, and past medical history as listed above Examination: Demonstrable impairment in strength, balance, and range of motion with underlying impairments and functional limitations as documented above Presentation:Evolving Decision Makin moderate complexity Goals: Goals X1 week 1. Supine-Sit independent 2. Sit-Supine independent 3. Sit-Stand independent 4. Stand-Sit independent 5. Bed-Chair independent 6. Chair-Bed independent 7. Independent gait on level surface with use of least restrictive device for at least 300 feet without report of pain nor dyspnea 8. Independent stair negotiation while holding onto bilateral rails for at least 5 steps without report of pain nor dyspnea 9. Independent with home exercise program 10. Good static and dynamic standing balance/tolerance Plan of Care/Treatment Plan: 1-2x/day, 7 days/week x 1 week. Initiate Physical Therapy intervention for strengthening, bed mobility, transfers, gait, stairs, balance training, use of assistive device. PT Intervention: Session for today consisted of initial physical therapy evaluation as well as education training on safe strategies for mobility ADL performance using single-point cane. DISCHARGE RECOMMENDATIONS: Patient will benefit from home health PT services in order to progress mobility level using least restrictive assistive ambulatory device, assess home safety, identify additional equipment needs, and establish a functional maintenance program that will increase ability of patient to remain at home. TREATMENT CODE/TIME: 11595 x 31 minutes beginning at 13:19 PM. Thank you very much for this referral. Eliane Coronado PT, DPT, CLT [facility] [place], [place]
--- NOTE | 2019-06-28 15:22 | CHAPLAIN ---
Elizabeth was up in a chair when I visited. She is from [place] and attends the [employer] in [place]. She said her university counselor knows she is here. Elizabeth said she is feeling better although she didn't have a restful sleep last night.
[2019-06-28] MEDS: Furosemide 40 MG TAB PO (16:00)
[2019-06-28] MEDS: cefTRIAXone 1 GM/50 ML BAG IVPB (17:50)
[2019-06-28] MEDS: Melatonin 3 MG TAB PO (20:29)
[2019-06-28] MEDS: Simvastatin 20 MG TAB PO (20:29)
[2019-06-29 07:18] LABS: Abs Immature Grans 0.02 k/cumm (0.0-0.09); Absolute Lymphocyte Count 0.57 k/cumm (1.2-3.4); Absolute Monocyte Count 0.31 k/cumm (0.11-0.7); Absolute Neutrophil Count 6.29 k/cumm (1.2-6.7); HCT 30.1 % (36.0-46.0); Immature Grans % 0.3 %; Lymphocytes % 7.9; Mean Corp. HGB Concentration 29.9 g/dL (32.0-36.0); Mean Corpuscular Hemoglobin 30.7 pg (27.0-33.0); Mean Corpuscular Volume 102.7 fL (80-95); Monocytes % 4.3; Neutrophils % 87.5; Platelet Count 223 x1000/uL (130-400); RBC 2.93 m/cumm (4.00-5.20); RBC Distribution Width 18.1 % (11.7-14.6); White Blood Cell Count 7.19 k/cumm (4.4-10.8)
[2019-06-29 07:28] LABS: Anion Gap 9.9 mmol/L (3-11); BUN 60 mg/dL (7-18); CO2 21.1 mmol/L (21.0-32.0); CREATININE 2.52 mg/dL (0.55-1.02); Calcium 8.9 mg/dL (8.5-10.1); Chloride 102 mmol/L (98-107); Estimated GFR 18.41 (mL/min/1.73m2); Glucose 139 mg/dL (74-106); INR 1.9 (0.9-1.1); Magnesium 1.7 mg/dL (1.8-2.4); Potassium 4.9 mmol/L (3.5-5.1); Sodium 133 mmol/L (136-145)
[2019-06-29 07:30] VITALS: BP 129/79; PULSE 78; RESP 21; TEMP 36.9; O2SAT 97
[2019-06-29] MEDS: Ferrous Sulfate 325 MG TAB PO (07:32)
[2019-06-29] MEDS: Calcium 600mg/Vit D 200U TAB 1 TAB PO (07:32)
[2019-06-29] MEDS: Vitamins B Comp w/C TAB 1 TAB PO (07:32)
[2019-06-29] MEDS: Allopurinol 100 MG TAB PO (07:32)
[2019-06-29] MEDS: Acetaminophen 325 MG TAB 650 MG PO (07:32)
[2019-06-29] MEDS: Loratidine 10 MG TAB PO (07:32)
[2019-06-29] MEDS: Sertraline 50 MG TAB 100 MG PO (07:32)
[2019-06-29] MEDS: Carvedilol 12.5 MG TAB PO (07:33)
[2019-06-29] MEDS: DOXYCYCLINE 100 MG in Normal Saline 100 ML IVPB (07:38)
[2019-06-29] MEDS: predniSONE 20 MG TAB 40 MG PO (07:38)
[2019-06-29] MEDS: Omeprazole 20 MG CAPCR PO (07:38)
[2019-06-29] MEDS: Normal Saline Flush 10 ML SYR IVP (07:42)
[2019-06-29] MEDS: Albuterol HFA 8 GM 60 PUFF INH IH ×2 (08:14→08:53)
[2019-06-29] MEDS: Budesonide/Formoterol 160/4.5 6 GM 60 PUFF INH IH (08:15)
[2019-06-29] MEDS: Magnesium Oxide 400 MG TAB 800 MG PO (11:16)
[2019-06-29] MEDS: Furosemide 40 MG TAB PO ×2 (11:16→15:32)
[2019-06-29 11:20] VITALS: BP 132/67; PULSE 76; RESP 18; TEMP 37.1; O2SAT 96
--- NOTE | 2019-06-29 12:02 | PT.INTREAT ---
Date of service: 06/29/19 Time of Service: 10:05 PT Notes Visit Reasons: SYPTOMATIC ANEMIA,LOWER GI BLEEDING,COVID-19 [facility] Inpatient Physical Therapy Treatment Note [facility] Date: June 29, 2019 PRECAUTIONS:Fall. Standard. Activity as tolerated. SUBJECTIVE: Elizabeth reports that she is feeling better. She is in hopes to go home today. She really wants to be out of the hospital. Declines any pain. OBJECTIVE: Observation: IV access, telemetry PAIN: Declines pain BED MOBILITY/TRANSFERS Sit-stand: Supervision Stand-sit: Supervision Bed-Chair: Supervision Chair-bed: Supervision GAIT Assistive Device: SPC Weight bearing: FWB Assist: CGA Distance: 200 feet Deviation: No LOB however did require to standing rest breaks due to SOB. THEREX: Patient tolerated ankle pumps x20, glutes sets x10, long arc quad x10 right/left, seated hip flexion x10 right/left, hip abduction and x10 right/left, shoulder flexion to 90 degrees x 10 bilaterally, elbow flexion x10 bilaterally. Patient noted general fatigue post session. Did require rest breaks in between exercise ASSESSMENT: Patient only required supervision for transfers. Continues to have shortness of breath with ambulation requiring frequent rests. No loss of balance. PLAN: Continue within patient allowance -Physical Therapy intervention for strengthening, bed mobility, transfers, gait, stairs, balance training, use of assistive device. TREATMENT CODE/TIME: 32507d1 [id number] 25 minutes 10:05 AM
--- NOTE | 2019-06-29 14:55 | CMPROGNOTE_ITS ---
- If Service Date Differs Date of service: 06/29/19 Time of Service: 14:55 Care Management Progress Note S/O: Per chart review, Elizabeth reports feeling better, denies any pain, and is looking forward to returning home. She uses a cane for ambulation, but is able to ambulate in her room without dizziness or instability. Elizabeth presented with mild wheezing and coughing on admission and these were treated with updrafts and prednisone, 40 mg daily. CM will continue to follow. A: Elizabeth is a 79 year old female admitted [facility] for symptomatic anemia and lower GI bleed. P: No change in plan. Elizabeth will be discharged home when medically cleared by provider with no new services. She will follow up with her PCP and will attend an already scheduled EGD appointment next week at [facility]. Elizabeth will be driven home via private vehicle by family when ready. CM will continue to support patient and discharge planning considerations.
--- NOTE | 2019-06-29 15:43 | W.PM.DS.N ---
Date of service: 06/29/19 Time of Service: 15:44 DS: Diagnosis Discharge Diagnosis (1) Symptomatic anemia: Status: Acute Asessment and Plan: Presented with a hemoglobin of 6.6. Transfused 2 units of packed red cells. Discharge hemoglobin 9.0. (2) Supratherapeutic INR: Status: Resolved Asessment and Plan: INR was 3.2 at the time of admission. She did not receive any reversal agents. INR drifted down to 1.9 at the time of discharge. Warfarin was held. (3) GI bleed: Status: Chronic Asessment and Plan: Heme positive stool since admission. There has been some hematochezia. There has not been any bright red blood per rectum. (4) Acute exacerbation of chronic bronchitis: Status: Acute Asessment and Plan: Mild wheezing and coughing on admission. She was treated with updrafts and prednisone 40 mg daily. At his own discontinued at the time of discharge. Discharge Plan Disposition Patient Disposition: HOME Condition: Stable Discharge Details Chief Complaint: SOB Clinical Impression: Symptomatic anemia, Supratherapeutic INR, GI bleed Reason For Visit: SYPTOMATIC ANEMIA,LOWER GI BLEEDING,COVID-19 [facility] Admit Date/Time: 06/27/19 12:32 Admit Provider: Kalyn Daley Attending Provider: Kalyn Daley Primary Care Provider: Lyric Jackson ED Provider: Ebony Cleary Hospital Course Hospital Course: 79-year-old woman admitted on 06/27/2019 because of shortness of breath and dizziness. She was sent to the emergency room from the infusion room because of these symptoms. She has an adenocarcinoma of the colon with chronic anemia. She is on Aranesp therapy. She had gone to the infusion room for an iron infusion and was found to have a hemoglobin of 6.6. In the emergency room her blood pressure was 86/52. A rectal exam revealed Hemoccult positive maroon stool. Patient described a normal bowel movement the day of admission. She was transfused 2 units of packed red cells. Her stool output did change color to a maroon color. Her blood pressure stabilized her hemoglobin came up to 9.5 post transfusion and dropped to 9.0 at the time of discharge. She is scheduled for an outpatient EGD and colonoscopy later this week. Home Meds and New Rx's Prescriptions: Continued acetaminophen [Tylenol] 325 MG tablet 650 mg PO BID RF: 0 sertraline 100 MG tablet 100 mg PO DAILY RF: 0 melatonin 3 MG tablet 3 mg PO HS RF: 0 calcium carbonate-vitamin D3 1 EACH tablet 1 tab PO BID RF: 0 coenzyme Q10 [Co Q-10] 50 MG capsule 50 mg PO DAILY RF: 0 simvastatin 20 MG tablet 20 mg PO DAILY RF: 0 ferrous sulfate 325 MG tablet 325 mg PO BID RF: 0 zafirlukast 20 MG tablet 20 mg PO BID RF: 0 nitroglycerin [Nitrostat] 0.4 MG tablet, sublingual 0.4 mg Sublingual PRN PRNRF: 0 omeprazole 20 MG capsule,delayed release(DR/EC) 20 mg PO BID RF: 0 albuterol sulfate [ProAir HFA] 8.5 GM HFA aerosol inhaler 2 puff Inhalation BID RF: 0 loratadine 10 MG tablet 10 mg PO DAILY RF: 0 Vitamins B Complex 1 EACH tablet 1 ea PO DAILY RF: 0 Advair HFA 230-21 mcg/actuation HFA aerosol inhaler 1 - 2 puff INHALATION DIRECTED RF: 0 allopurinol 100 mg tablet 100 mg PO DAILY RF: 0 carvedilol 12.5 mg tablet 12.5 mg PO BID RF: 0 solifenacin [Vesicare] 5 mg Tablet 10 mg PO BID RF: 0 Changed furosemide 40 MG tablet 40 mg PO BID Qty: 0 RF: 0 Discontinued warfarin [Coumadin] 5 MG tablet 2.5 - 5 mg PO DAILY RF: 0 valsartan [Diovan] 320 MG tablet 40 mg PO DAILY RF: 0 Discharge Instructions Instructions: Gastrointestinal Bleeding (GEN) Activity:: Activity as Tolerated Equipment/Supplies:: No Equipment Needed Diet:: As Tolerated Discharge Orders Discharge Orders: Discharge Order (Routine); Ordered 06/29/19 Ordered By: Isreal Dacosta DS: Summary Status at Discharge Functional status at discharge: uses cane/walker Overall status at discharge: patient is back to baseline Mental Status: mental status grossly normal Speech and Movement: speech and movement normal Mood: congruent mood Affect: normal affect Time Spent with Patient providing and/or coordinating discharge services: Greater than 30 minutes Exam Narrative Exam Narrative: Her exam on the day of discharge she was alert talkative in no apparent distress. She was able to ambulate around in her room without dizziness or instability. She uses a cane for ambulation. Her lungs showed mild diffuse wheezing but good air movement. Heart sounds were regular abdomen is quite markedly obese but nontender. Her creatinine had bumped to 2.52 on Lasix 80 in the a.m. 40 in the p.m. Her Lasix dose was decreased to 40 twice daily. Psych Mental Status: mental status grossly normal Speech and Movement: speech and movement normal Mood: congruent mood Affect: normal affect DS: Data Vitals/I&O Vitals and I&O: Vital Signs Temperature 37.1 C 06/29/19 11:20 Temperature Source Temporal Artery Scan 06/29/19 11:20 Pulse 76 06/29/19 11:20 Pulse Rhythm Regular 06/29/19 07:32 Pulse 73 06/28/19 08:01 Respiratory Rate 18 06/29/19 11:20 Respiratory Effort Non-Labored 06/29/19 07:32 Respiratory Depth Normal 06/29/19 07:32 Respiratory Pattern Normal 06/29/19 07:32 Blood Pressure 132/67 06/29/19 11:20 Blood Pressure Mean 87 06/28/19 16:07 Blood Pressure Position Sitting 06/28/19 16:07 Pulse Oximetry 96 06/29/19 11:20 Oxygen Delivery Method Room Air 06/29/19 11:20 Oxygen Flow Rate 0 06/29/19 11:20 Pain Level 0 06/29/19 11:20 Intake & Output 06/28/19 06/29/19 06/29/19 23:59 11:59 23:59 Intake Total 460 / 2730 100 / 350 250 / 350 Output Total 1350 / 2075 600 / 600 Balance -890 / 655 -500 / -250 250 / -250 Intake: IV 110 / 1210 100 / 100 Oral 350 / 1220 250 / 250 Output: Urine 1150 / 1725 600 / 600 Stool 200 / 350 Other: Urine Color Yellow Yellow Urine Appearance Clear Clear Urine Odor Strong Normal Comment Mixed with stool Stool Occult Blood Positive Stool Size Moderate Moderate Stool Characteristics Soft Soft Formed Formed Brown Mucoid Black Black Voiding Methods Toilet Toilet Data Completed and Pending Labs on day of discharge: Labs from last 24 hours 06/29/19 06/29/19 06/29/19 06:25 06:25 06:25 WBC 7.19 D RBC 2.93 L Hgb 9.0 L Hct 30.1 L MCV 102.7 H MCH 30.7 MCHC 29.9 L RDW 18.1 H Plt Count 223 MPV 10.0 Immature Gran % 0.3 Neutrophils % 87.5 Lymphocytes % 7.9 Monocytes % 4.3 Eosinophils % 0.0 Basophils % 0.0 Absolute Neutrophils 6.29 Absolute Lymphocytes 0.57 L Absolute Monocytes 0.31 Absolute Eosinophils 0.00 Absolute Basophils 0.00 PT 19.0 H D INR 1.9 H D Sodium 133 L Potassium 4.9 Chloride 102 Carbon Dioxide 21.1 Anion Gap 9.9 BUN 60 H Creatinine 2.52 H Estimated GFR/1.73 m2 18.41 Glucose 139 H Calcium 8.9 Magnesium 1.7 L Preliminary micro results at discharge 06/27/19 15:35 Sputum Culture - Preliminary Sputum - Expectorated Moraxella Catarrhalis Normal Nathalie [facility] Medical History Adenocarcinoma of colon (Acute) Anemia (Chronic) Atrial fibrillation (Chronic) s/p pacemaker CHF (congestive heart failure) (Chronic) unknown EF Chronic bronchitis (Acute) Chronic cough (Acute) CKD (chronic kidney disease) stage 4, GFR 15-29 ml/min (Acute) COPD (chronic obstructive pulmonary disease) (Chronic) Depression (Chronic) Diverticulitis (Chronic) DJD (degenerative joint disease) (Chronic) Emphysema lung (Acute) Helicobacter pylori gastritis (Acute) Hemoptysis (Acute) in setting of MRSA tracheobronchitis and Neisseria infection Hyperlipidemia (Acute) Hypertension (Chronic) IBS (irritable bowel syndrome) (Chronic) Impaired fasting glucose (Acute) LBBB (left bundle branch block) (Acute) Macular degeneration (Acute) Mitral valve regurgitation (Chronic) Obstructive sleep apnea (Chronic) Not using oral appliance Pulmonary hypertension (Acute) PA pressures 55 mmHg Surgical History H/O colonoscopy with polypectomy (Acute) H/O hernia repair (Chronic) History of esophagogastroduodenoscopy (EGD) (Chronic) S/P bilateral cataract extraction (Acute) S/P cholecystectomy (Acute) S/P right rotator cuff repair (Acute) Status post total hip replacement, right (Acute) Status post total left knee replacement (Acute) Family History Mother Heart disease Stroke Hypertension Father Heart disease Brother Heart disease Cancer lung cancer - smoker Brother Cancer pancreatic cancer - smoker Social History Smoking/Tobacco Use Status: Former Tobacco Use Quit Date: 02/13/75 Tobacco: How many years used: 10 Alcohol Intake: former Drug use: Never Substance use type: does not use Do you feel safe at home: Yes Do you feel safe in your relationship?: Yes
--- NOTE | 2019-06-29 16:05 | CMDISCH_ITS ---
- If Service Date Differs Date of service: 06/29/19 Time of Service: 14:05 LACE Index Scoring Tool - Questions: Length of Stay (in days): 2 Acuity (Admit via E.D.?): Yes Comorbidities: Congestive Heart Failure, Any Tumor E.D. Visits: 2 - Answers: Total Score: 12 Risk of Readmission: High Risk Care Management Discharge Reason for Hospitalization: Symptomatic Anemia, Lower GI bleed Discharge Plan: Elizabeth is discharged home with no new services. She will follow up with her PCP and plan of care as directed. She is scheduled for an outpatient EGD and colonoscopy later this week at [facility]. She is being drive home by private vehicle with family. Patient/Family Education Needs: Nursing will review discharge instructons with Elizabeth re medications and activity level. Elizabeth is able to verbalize reason for hospitalization and how to manage care at home.
--- NOTE | 2019-06-30 08:21 | PT.INDS ---
Date of service: 06/30/19 Time of Service: 08:21 PT Notes Visit Reasons: SYPTOMATIC ANEMIA,LOWER GI BLEEDING,COVID-19 [facility] Inpatient Physical Therapy Discharge Summary Dates: June 30, 2019 Dates of Service: 06/28/19-06/29/19 SUBJECTIVE: N/T OBJECTIVE: General Observation: Telemetry monitoring in place. Edema to bilateral legs. Obese. Mental Status: Alert and oriented x4 Pain: None reported ROM: Right Upper Extremity: Shoulder Flexion allows up to 90 degrees. Shoulder abduction allows up to 90 degrees. Elbow flexion WFL. Wrist flexion WFL. Opening and closing of hand WFL. Left Upper Extremity: Shoulder Flexion WFL. Shoulder abduction WFL. Elbow flexion WFL. Wrist flexion WFL. Opening and closing of hand WFL. Right Lower Extremity: Hip flexion up to 10 degrees beyond 90 while seated on the edge of the chair. Hip abduction WFL. Knee flexion WFL. Ankle dorsiflexion WFL. Ankle plantarflexion WFL. Left Lower Extremity: Hip flexion up to 10 degrees beyond 90 while seated on the edge of the chair. Hip abduction WFL. Knee flexion WFL. Ankle dorsiflexion WFL. Ankle plantarflexion WFL. Strength: Right Upper Extremity: Shoulder flexors 3-/5. Shoulder abductors 3-/5. Elbow flexors 4-/5. Elbow extensors 4-/5. 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 Left Upper Extremity: Shoulder flexors 3-/5. Shoulder abductors 3-/5. Elbow flexors 4/5. Elbow extensors 4/5. 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 Right Lower Extremity: Hip flexors 3-/5. Hip abductors 4-/5. Knee flexors 4/5. Knee extensors 4-/5. Ankle dorsiflexors 4-/5. Ankle plantarflexors 4-/5. Left Lower Extremity:Hip flexors 3-/5. Hip abductors 4-/5. Knee flexors 4/5. Knee extensors 4-/5. Ankle dorsiflexors 4-/5. Ankle plantarflexors 4-/5. Sensation: Intact as to pain and pressure on bilateral lower extremities. Bed Mobility/Transfers: Sit to stand supervision using BUE for support Stand to sit supervision using BUE for support Bed to chair standby assist using BUE for support Chair to bed standby assist using BUE for support Gait: Patient tolerated level surface ambulation of 200 feet using single-point cane with full weightbearing and contact-guard assist. Reciprocal swing through gait pattern. Step height decreased. Cassie decreased. Patient required 2 standing rests breaks due to SOB. Balance: Static Sitting: Normal Dynamic Sitting: Normal Static Standing: Fair Dynamic Standing: Fair This document serves as a summary of care only. Assessment: Elizabeth is a 79 year old female who presented to the ED on 06/27/2019 with chief complaints of generalized weakness, difficulty with breathing on exertion, intermittent black stools for the past 1 to 2 weeks prior to presentation, and dizziness. Patient is diagnosed with symptomatic anemia and received 2 units of PRBCs, supratherapeutic INR, GI bleed, and chronic bronchitis exacerbation. Patient tested negative for COVID-19 as of 06/28/2019. Goals: Goals X1 week 1. Supine-Sit independent (MET) 2. Sit-Supine independent (MET) 3. Sit-Stand independent (progressing towards required supervision only) 4. Stand-Sit independent (progressing towards required supervision only) 5. Bed-Chair independent (progressing towards required SBA only) 6. Chair-Bed independent (progressing towards required SBA only) 7. Independent gait on level surface with use of least restrictive device for at least 300 feet without report of pain nor dyspnea (Not MET) 8. Independent stair negotiation while holding onto bilateral rails for at least 5 steps without report of pain nor dyspnea (MET) 9. Independent with home exercise program (MET) 10. Good static and dynamic standing balance/tolerance (Not Met) Plan of Care/Treatment Plan: Patient discharged per MD order home. DISCHARGE RECOMMENDATIONS: Patient will benefit from home health PT services in order to progress mobility level using least restrictive assistive ambulatory device, assess home safety, identify additional equipment needs, and establish a functional maintenance program that will increase ability of patient to remain at home. Thank you very much for this referral. Cecile Javed, MPT [place] [facility]
== END 2019-06-29 16:57 | disposition home or self-care (01) | DRG 378 ==
LOC: ER 12:41 → ICU 13:26 → MS 06-28 16:36
PROVIDERS: Admitting Provider Internal Medicine; Emergency Provider Physician Assistant; PCP Family Medicine; Visit Provider Internal Medicine
DX: K92.2 Gastrointestinal hemorrhage, unspecified (principal); C18.9 Malignant neoplasm of colon, unspecified; N18.4 Chronic kidney disease, stage 4 (severe); J44.0 Chronic obstructive pulmonary disease with (acute) lower respiratory infection; D62 Acute posthemorrhagic anemia; J20.9 Acute bronchitis, unspecified; D63.0 Anemia in neoplastic disease; R79.1 Abnormal coagulation profile; T45.515A Adverse effect of anticoagulants, initial encounter; Z79.01 Long term (current) use of anticoagulants; R82.71 Bacteriuria; B96.20 Unspecified Escherichia coli [E. coli] as the cause of diseases classified elsewhere; Z03.818 Encounter for observation for suspected exposure to other biological agents ruled out; I12.9 Hypertensive chronic kidney disease with stage 1 through stage 4 chronic kidney disease, or unspecified chronic kidney disease
CPT/HCPCS: 36415; 36430; 80048; 84145; 85027; 86850; 86900; 86901; 86920; 87077; 93005; 94640; 96365; 96366; 96372; 97110; 97162; 97530; 99221; 99223; 99232; 99239; 99285; U0003; 71045; 81003; 81015; 82728; 83540; 83550; 83605; 83735; 84132; 84484; 85014; 85018; 85025; 85610; 87070; 87086; 87186; 87205; 93010; 94667; J0696; J0881; J1756; J7512; P9016

== ENCOUNTER 2019-07-11 03:02 | Outpatient (RCR) | payer MEDICARE, MEDICAID, SELFPAY ==
[2019-06-20] MEDS: IRON SUCROSE COMPLEX 300 MG in Normal Saline 250 ML 176.667 MG IVPB (12:58)
[2019-06-20] MEDS: Normal Saline Flush 10 ML SYR IVP (13:01)
[2019-06-27] MEDS: IRON SUCROSE COMPLEX 300 MG in Normal Saline 250 ML 176.667 MG IVPB (09:08)
[2019-06-27] MEDS: Normal Saline Flush 10 ML SYR IVP (09:08)
[2019-06-27 09:14] LABS: HCT 22.4 % (36.0-46.0); Mean Corp. HGB Concentration 28.1 g/dL (32.0-36.0); Mean Corpuscular Hemoglobin 31.7 pg (27.0-33.0); Mean Corpuscular Volume 112.6 fL (80-95); Mean Platelet Volume 9.7 fL (8.0-11.0); Platelet Count 214 x1000/uL (130-400); RBC 1.99 m/cumm (4.00-5.20); RBC Distribution Width 16.5 % (11.7-14.6)
[2019-06-27 09:24] LABS: HGB 6.3 g/dL (12.0-15.5)
[2019-06-27 09:35] LABS: BUN 69 mg/dL (7-18); CREATININE 2.63 mg/dL (0.55-1.02); Calcium 8.5 mg/dL (8.5-10.1); Chloride 106 mmol/L (98-107); Estimated GFR 17.52 (mL/min/1.73m2); Ferritin 233 ng/mL (8-252); Glucose 116 mg/dL (74-106); Potassium 4.8 mmol/L (3.5-5.1); Sodium 140 mmol/L (136-145)
[2019-06-27 09:42] LABS: Iron 24 ug/dL (50-170); Total Iron Binding Capacity 220 ug/dL (250-450); Transferrin Sat 11 % (15-50)
[2019-06-27 10:06] LABS: INR 3.2 (0.9-1.1)
[2019-06-27 10:32] LABS: Prothrombin Time 31.6 sec (9.3-11.0)
[2019-06-27 10:45] VITALS: BP 103/48; PULSE 75; RESP 19; TEMP 36.2; O2SAT 98
[2019-06-27] MEDS: Darbepoetin 300 MCG SYR SC (10:58)
[2019-07-11 13:23] LABS: Abs Immature Grans 0.01 k/cumm (0.0-0.09); Absolute Eosinophil Count 0.12 k/cumm (0.0-0.7); Absolute Lymphocyte Count 0.67 k/cumm (1.2-3.4); Absolute Monocyte Count 0.33 k/cumm (0.11-0.7); Absolute Neutrophil Count 4.67 k/cumm (1.2-6.7); Eosinophils % 2.1; HCT 29.2 % (36.0-46.0); HGB 8.6 g/dL (12.0-15.5); Immature Grans % 0.2 %; Lymphocytes % 11.6; Mean Corp. HGB Concentration 29.5 g/dL (32.0-36.0); Mean Corpuscular Hemoglobin 31.4 pg (27.0-33.0); Mean Corpuscular Volume 106.6 fL (80-95); Mean Platelet Volume 9.5 fL (8.0-11.0); Monocytes % 5.7; Neutrophils % 80.4; Platelet Count 167 x1000/uL (130-400); RBC 2.74 m/cumm (4.00-5.20); RBC Distribution Width 17.8 % (11.7-14.6)
[2019-07-11 13:35] LABS: Anisocytosis 1+; Macrocytosis 1+
[2019-07-11 13:36] LABS: Polychromasia Present
[2019-07-11 13:37] LABS: Albumin 2.6 g/dL (3.4-5.0); Anion Gap 5.1 mmol/L (3-11); BUN 49 mg/dL (7-18); CO2 26.9 mmol/L (21.0-32.0); CREATININE 1.89 mg/dL (0.55-1.02); Calcium 8.6 mg/dL (8.5-10.1); Chloride 104 mmol/L (98-107); Estimated GFR 25.66 (mL/min/1.73m2); Glucose 112 mg/dL (74-106); PHOSPHORUS 3.3 mg/dL (2.6-4.7); Potassium 4.7 mmol/L (3.5-5.1); Sodium 136 mmol/L (136-145); Uric Acid 5.2 mg/dL (2.6-6.0)
[2019-07-11] MEDS: Darbepoetin 300 MCG SYR SC (14:04)
[2019-07-12 12:38] LABS: Parathyroid Hormone,Intact 183 pg/mL (19-88)
== END 2019-07-14 23:59 | disposition home or self-care (01) ==
LOC: INF 03:02
PROVIDERS: Internal Medicine Nephrology; PCP Family Medicine; Visit Provider Internal Medicine
DX: N18.4 Chronic kidney disease, stage 4 (severe) (principal); D63.1 Anemia in chronic kidney disease; D50.9 Iron deficiency anemia, unspecified
CPT/HCPCS: 36415; 80048; 85027; 96365; 96366; 96372; 82040; 82565; 82728; 83540; 83550; 83970; 84100; 84156; 84550; 85025; 85379; 85610; J0881; J1756

== ENCOUNTER 2019-07-25 01:57 | Outpatient (RCR) | payer MEDICARE, MEDICAID, SELFPAY ==
[2019-07-25 13:46] LABS: HCT 28.4 % (36.0-46.0); HGB 8.2 g/dL (12.0-15.5)
[2019-07-25] MEDS: Darbepoetin 300 MCG SYR SC (14:15)
[2019-07-25 14:45] LABS: Anion Gap 8.9 mmol/L (3-11); BUN 65 mg/dL (7-18); CO2 27.1 mmol/L (21.0-32.0); CREATININE 2.32 mg/dL (0.55-1.02); Calcium 8.4 mg/dL (8.5-10.1); Chloride 103 mmol/L (98-107); Estimated GFR 20.25 (mL/min/1.73m2); Glucose 164 mg/dL (74-106); Potassium 4.6 mmol/L (3.5-5.1); Sodium 139 mmol/L (136-145); Vitamin B12 1056 pg/mL (193-986)
[2019-07-25 14:47] LABS: Folate > 20.0 ng/mL (8.6-20.0)
== END 2019-08-13 23:59 | disposition home or self-care (01) ==
LOC: INF 01:57
PROVIDERS: Internal Medicine Nephrology; PCP Family Medicine; Visit Provider Internal Medicine
DX: N18.4 Chronic kidney disease, stage 4 (severe) (principal); D63.1 Anemia in chronic kidney disease
CPT/HCPCS: 36415; 80048; 96372; 82607; 82746; 85014; 85018; J0881